=== PATIENT | female | born 1960 | race Caucasian/White ===

== ENCOUNTER 2021-04-11 14:20 | Emergency (ER) | payer MEDICAID, SELFPAY ==
[2021-04-11 15:07] VITALS: BP 110/76; PULSE 66; RESP 20; TEMP 36.8; O2SAT 97; BMI 28.5
[2021-04-11 16:40] VITALS: BP 122/73; PULSE 64; RESP 16; TEMP 37.1; O2SAT 100
--- NOTE | 2021-04-11 16:49 | ED_ITS ---
HPI - Abdominal Pain General: Chief Complaint: Abdominal Pain Stated Complaint: ABD pain Time Seen by Provider: 04/11/21 15:54 History of Present Illness: HPI narrative: The patient is a 60-year-old female who comes to the ER complaining of of gross ascites. She has chronic liver failure and gets it tapped every 5 to 7 days. She was unable to make it to [place] to get it tapped for her last appointment so she came today for evaluation. She complains of abdominal fullness and she also says she thinks she has a urinary tract infection. She was last drained April 04 at [facility] in [place]. No previous visits here in the ED. She says her belly feels swollen and uncomfortable. It is soft to palpation and not tender. Location: Diffuse Severity: moderate Quality: fullness Exacerbating factors: nothing Relieving factors: nothing Associated Symptoms: Reports dysuria; Denies GI cramping and diarrhea Review of Systems General: Reports: 10 or more systems reviewed and unremarkable except in HPI and below Const: Denies: fatigue Eyes: Denies: change in vision, blurry vision or eye redness ENMT: Denies: throat pain, swelling of lips/tongue, ear or mastoid pain or n maite congestion Card: Denies: chest pain, palpitations, irregular heart rhythm, edema, dyspnea on exertion or orthopnea Resp: Denies: dyspnea, productive cough or non-productive cough GI: Denies: abdominal pain, diarrhea or GI cramping : Reports: dysuria Musc: Denies: neck pain, back pain, extremity pain, joint pain, joint redness, limited range of motion or muscle weakness Skin/Breast: Denies: rash, pruritus, erythema, skin pain or skin tenderness Neuro: Denies: headache(s), numbness in extremities, weakness in extremities, sensory changes, difficulty walking, dizziness, confusion or Slurred speech present Psych: Denies: anxiety or depression Endo: Denies: polyuria All/Imm: Denies: urticaria, throat swelling or tongue swelling Physical Exam Const: COMMON NORMALS: no acute distress, average body habitus, patient oriented x3, no limitations, healthy appearing, alert and well nourished GENERAL APPEARANCE: cooperative, comfortable, well kempt and well developed ORIENTATION/CONSCIOUSNESS: Yes awake, Yes oriented to person, Yes oriented to place and Yes oriented to time HENMT: COMMON NORMALS: normocephalic, external ears normal and Normal external nose present HEAD & SCALP: normal to inspection and normocephalic NOSE: Normal external nose present EXTERNAL EAR: Yes external ears normal MOUTH: Normal oral and palatal mucosa present THROAT: posterior oropharynx normal Eye: COMMON NORMALS: Equal, round and reactive pupils present and EOMs intact bilaterally GENERAL EYE: appearance normal, both eyes and all related structures PUPIL: Yes Equal, round and reactive pupils present Neck/C-Spine: COMMON NORMALS: full ROM, no lymphadenopathy, no meningeal signs and no JVD GENERAL: Yes normal visual inspection Lymph: LYMPHATIC: no lymphadenopathy noted Chest: COMMONS NORMALS: normal inspection of the chest and normal palpation of entire chest wall Resp: COMMON NORMALS: normal respiratory effort, No retractions, No use of accessory muscles, clear to auscultation bilaterally and percussion normal EFFORT & INSPECTION: Yes able to speak in complete sentences AUSCULTATION: clear to auscultation bilaterally PERCUSSION: percussion normal Cardio: COMMON NORMALS: no JVD, regular rate, regular rhythm, S1 normal heart sound present, S2 normal heart sound present and Peripheral pulses 2+ throughout RATE: regular rate RHYTHM: regular rhythm HEART SOUNDS: S1 normal heart sound present and S2 normal heart sound present PERIPHERAL PULSES: Peripheral pulses 2+ throughout GI: COMMON NORMALS: Soft to palpation, non-tender and no masses INSPECTION: Yes normal to inspection PALPATION: Yes Soft to palpation OTHER: Gross ascites. Belly still soft and not tender. Umbilical hernia present as well. Nontender. : COMMON NORMALS: Yes no CVA tenderness BLADDER/KIDNEY EXAM: Yes no CVA tenderness Back/Pelvis: COMMON NORMALS: no CVA tenderness, thoracic and lumbar spine normal to inspection, no thoracic nor lumbar tenderness and thoraco-lumbar ROM normal Extremity: COMMON NORMALS: normal to inspection, full ROM, capillary refill normal, no joint enlargement and no pedal edema GENERAL: Yes normal exam except as noted Neuro: COMMON NORMALS: patient oriented x3, CN's II-XII intact bilaterally, moves all extremities, no focal motor deficits, no sensory deficits noted and gait normal SENSORIUM/ORIENTATION: Yes alert, Yes oriented to person, Yes oriented to place and Yes oriented to time MENINGEAL SIGNS: Yes no meningeal signs Psych: COMMON NORMALS: mental status grossly normal, Normal thought process present, cooperative, normal affect and speech normal APPEARANCE: Yes well kempt ATTITUDE: Yes calm SPEECH: Yes normal speech THOUGHT PROCESS: Normal thought process present Skin: COMMON NORMALS: no rashes or lesions noted GENERAL SKIN EXAM: no rashes or lesions noted Course Vital Signs: Vital signs: Vital Signs Temperature 98.7 F 04/11/21 16:40 Pulse Rate 69 04/11/21 17:50 Respiratory Rate 16 04/11/21 17:50 Blood Pressure 104/74 04/11/21 17:50 Pulse Oximetry 99 04/11/21 17:50 MDM - Abdominal Pain MDM Narrative: Medical decision making narrative: The patient is a 60-year-old female new to the area [facility] who comes to the ER requesting her belly be tapped as she missed her appointment and she is new to the area. She missed her appointment she gets it drained every 5 to 7 days. She last had it drained on April 04. She complains of belly distention. Her belly is distended and has a reducible umbilical hernia but is still soft. Called interventional radiology to see if they could perform a paracentesis and they said no schedule it tomorrow. Appointment was set up for tomorrow to check in at 10 AM at the front of the hospital for a paracentesis. She will return with worsening symptoms at any time. She also has slight UTI and will be given Macrobid Lab Data: Labs: Lab Results 04/11/21 04/11/21 04/11/21 Range/Units 14:40 17:00 17:00 WBC 5.0 (4.0-10.0) 10^3/ uL RBC 3.93 L (4.1-5.3) 10^6/u L Hgb 10.7 L (11.5-15.3) g/dL Hct 35.2 L (37.0-47.0) % MCV 89.6 (81-99) fL MCH 27.2 L (28.0-34.0) pg MCHC 30.4 (30.0-36.0) g/dL RDW 15.5 H (12.1-15.1) % Plt Count 109 L (130-400) 10^3/c mm MPV 11.1 H (7.4-10.4) fL Neut % (Auto) 76.6 % Lymph % (Auto) 9.3 % Jerome % (Auto) 10.7 % Eos % (Auto) 2.4 % Baso % (Auto) 0.8 % Neut # (Auto) 3.79 (1.8-7.7) 10^3/u L Lymph # (Auto) 0.5 L (0.8-4.8) 10^3/u L Jerome # (Auto) 0.5 (0.2-0.9) 10^3/u L Eos # (Auto) 0.1 (0.0-0.8) 10^3/u L Baso # (Auto) 0.0 (0.0-0.1) 10^3/u L Nucleated RBC % (a uto) 0 % Nucleated RBCs # 0.0 /100WBC PT 15.20 H (12.1-14.9) SECO NDS INR 1.17 (0.8-1.2) Sodium (136-145) mmol/L Potassium (3.5-5.1) mmol/L Chloride (98-107) mmol/L Carbon Dioxide (22-29) mmol/L Anion Gap (5-19) BUN (8-23) mg/dL Creatinine (0.5-0.9) mg/dL GFR Calculation (90-130) mL/min Glucose (65-115) mg/dL Calculated Osmolal ity (285-295) mOsm/k g Calcium (8.5-10.5) mg/dL Total Bilirubin (0.15-1.2) mg/dL AST (0-32) U/L ALT (0-33) U/L Alkaline Phosphata se (35-105) IU/L Total Protein (6.6-8.7) g/dL Albumin (3.5-5.2) g/dL Globulin (1.3-4.6) g/dL Lipase (13-60) U/L Urine Color [place] (Yellow) Urine Appearance Hazy A (CLEAR) Urine pH 6 (5-7) Ur Specific Gravit y 1.015 (1.005-1.030) Urine Protein Neg (Negative) Urine Glucose (UA) Norm (Normal) Urine Ketones 1+ H (Negative) Urine Blood Neg (Negative) Urine Nitrate Positive H (Negative) Urine Bilirubin 1+ H (Negative) Urine Urobilinogen 1 H (Negative) mg/dL Ur Leukocyte Jennifer ase Trace H (Negative) Urine RBC 0-4 H (0-2) /hpf Urine WBC 5-10 H (0-5) /hpf Ur Squamous Epith Cells 0-4 H (0-5) /hpf Amorphous Sediment Not Reportable Urine Bacteria 3+ H (NONE) /hpf 04/11/21 Range/Units 17:00 WBC (4.0-10.0) 10^3/ uL RBC (4.1-5.3) 10^6/u L Hgb (11.5-15.3) g/dL Hct (37.0-47.0) % MCV (81-99) fL MCH (28.0-34.0) pg MCHC (30.0-36.0) g/dL RDW (12.1-15.1) % Plt Count (130-400) 10^3/c mm MPV (7.4-10.4) fL Neut % (Auto) % Lymph % (Auto) % Jerome % (Auto) % Eos % (Auto) % Baso % (Auto) % Neut # (Auto) (1.8-7.7) 10^3/u L Lymph # (Auto) (0.8-4.8) 10^3/u L Jerome # (Auto) (0.2-0.9) 10^3/u L Eos # (Auto) (0.0-0.8) 10^3/u L Baso # (Auto) (0.0-0.1) 10^3/u L Nucleated RBC % (a uto) % Nucleated RBCs # /100WBC PT (12.1-14.9) SECO NDS INR (0.8-1.2) Sodium 138 (136-145) mmol/L Potassium 3.5 (3.5-5.1) mmol/L Chloride 107 (98-107) mmol/L Carbon Dioxide 22 (22-29) mmol/L Anion Gap 12.5 (5-19) BUN 14 (8-23) mg/dL Creatinine 0.7 (0.5-0.9) mg/dL GFR Calculation 85.1 L (90-130) mL/min Glucose 71 (65-115) mg/dL Calculated Osmolal ity 285 (285-295) mOsm/k g Calcium 8.3 L (8.5-10.5) mg/dL Total Bilirubin 0.6 (0.15-1.2) mg/dL AST 34 H (0-32) U/L ALT 23 (0-33) U/L Alkaline Phosphata se 105 (35-105) IU/L Total Protein 5.5 L (6.6-8.7) g/dL Albumin 3.1 L (3.5-5.2) g/dL Globulin 2.4 (1.3-4.6) g/dL Lipase 35 (13-60) U/L Urine Color (Yellow) Urine Appearance (CLEAR) Urine pH (5-7) Ur Specific Gravit y (1.005-1.030) Urine Protein (Negative) Urine Glucose (UA) (Normal) Urine Ketones (Negative) Urine Blood (Negative) Urine Nitrate (Negative) Urine Bilirubin (Negative) Urine Urobilinogen (Negative) mg/dL Ur Leukocyte Jennifer ase (Negative) Urine RBC (0-2) /hpf Urine WBC (0-5) /hpf Ur Squamous Epith Cells (0-5) /hpf Amorphous Sediment Urine Bacteria (NONE) /hpf Discharge Plan Discharge Patient Disposition: Home Clinical Impression: Ascites, UTI (urinary tract infection) Condition: Stable Prescriptions: New Macrobid 100 mg capsule 100 mg PO BID 5 Days Qty: 10 RF: 0 No Action furosemide 40 mg Tablet 40 mg PO DAILY RF: 0 levothyroxine 175 mcg Tablet 175 mcg PO DAILY RF: 0 trazodone 50 mg Tablet 100 mg PO BEDTIME RF: 0 pantoprazole 40 mg Tablet,Delayed Release (Dr/Ec) 40 mg PO DAILY RF: 0 ibuprofen 200 mg Tablet 200 - 400 mg PO Q6H PRN (Reason: Pain) RF: 0 prazosin 2 mg Capsule 2 mg PO BEDTIME RF: 0 spironolactone 50 mg Tablet 50 mg PO DAILY RF: 0 Xifaxan See Rx Instructions .ROUTE .COMPLEX RF: 0 Discharge Orders: Discharge ED (Routine); Ordered 04/11/21 Ordered By: Lopez Agrawal Discharge Diet: Advance as tolerated Discharge Activity: Resume usual activity Patient Instructions: Ascites (ED), Dysuria (ED), Opioid Safety Activity Restrictions/Additional Instructions: Please follow-up at the front entrance of the hospital tomorrow morning at 10 AM and you are scheduled for a paracentesis at that time. Return to the ER at anytime with worsening symptoms while you are at home for reevaluation. You also have a urinary tract infection and will be prescribed Macrobid for this. Take as directed and return to the ER with worsening symptoms otherwise follow- up with your primary care provider. I have placed a case management consult to help you get a local primary doctor. Coding Level of Care Code ED Conventions Assistant for Holly Fwd Exam Comprehensive
[2021-04-11 17:02] LABS: Add Urine Microscopic? YES; Bilirubin Urine 1+ (Negative); Blood Urine Neg (Negative); Glucose Urine UA Norm (Normal); Ketones Urine 1+ (Negative); Leukocyte Esterase Urine Trace (Negative); Nitrate Urine Positive (Negative); Protein Urine Neg (Negative); Specific Gravity, Urine 1.015 (1.005-1.030); Urine Appearance Hazy (CLEAR); Urine Color Orange (Yellow); Urobilinogen Urine 1 mg/dL (Negative); pH Urine 6 (5-7)
[2021-04-11 17:07] LABS: Bacteria Urine 3+ /hpf; RBC Urine 0-4 /hpf (0-2); Squamous Epithelial Cell Urine 0-4 /hpf (0-5)
[2021-04-11 17:08] LABS: Add Urine Culture? Yes
[2021-04-11 17:10] LABS: Basophils % 0.8 %; Eosinophils # 0.1 10^3/uL (0.0-0.8); Eosinophils % 2.4 %; Hematocrit 35.2 % (37.0-47.0); Hemoglobin 10.7 g/dL (11.5-15.3); Lymphocytes # 0.5 10^3/uL (0.8-4.8); Lymphocytes % 9.3 %; Mean Corpuscular HGB Conc 30.4 g/dL (30.0-36.0); Mean Corpuscular Hemoglobin 27.2 pg (28.0-34.0); Mean Corpuscular Volume 89.6 fL (81-99); Mean Platelet Volume 11.1 fL (7.4-10.4); Monocytes # 0.5 10^3/uL (0.2-0.9); Monocytes % 10.7 %; Neutrophils # 3.79 10^3/uL (1.8-7.7); Neutrophils % 76.6 %; Nucleated Red Blood Cells % 0 %; Platelet Count 109 10^3/cmm (130-400); Red Blood Count 3.93 10^6/uL (4.1-5.3); Red Cell Distribution Width 15.5 % (12.1-15.1)
[2021-04-11 17:22] LABS: INR 1.17 (0.8-1.2)
[2021-04-11 17:26] LABS: Alanine Aminotransferase 23 U/L (0-33); Albumin Level 3.1 g/dL (3.5-5.2); Alkaline Phosphatase 105 IU/L (35-105); Anion Gap 12.5 (5-19); Aspartate Amino Transferase 34 U/L (0-32); Blood Urea Nitrogen 14 mg/dL (8-23); Calcium 8.3 mg/dL (8.5-10.5); Carbon Dioxide 22 mmol/L (22-29); Chloride 107 mmol/L (98-107); Globulin 2.4 g/dL (1.3-4.6); Glomerular Filtration Rate 85.1 mL/min (90-130); Glucose 71 mg/dL (65-115); Lipase 35 U/L (13-60); Osmolality Calculated 285 mOsm/kg (285-295); Potassium 3.5 mmol/L (3.5-5.1); Sodium 138 mmol/L (136-145); Total Bilirubin 0.6 mg/dL (0.15-1.2); Total Protein 5.5 g/dL (6.6-8.7)
[2021-04-11] MEDS: nitrofurantoin SR (BID) 100 mg Capsule PO (17:49)
[2021-04-11 17:50] VITALS: BP 104/74; PULSE 69; RESP 16; O2SAT 99
--- NOTE | 2021-04-12 11:40 | PC.NURSE ---
prescription called into [facility] pharmacy in [place].
--- NOTE | 2021-04-15 12:33 | DCPLANNER ---
regional safety manager had message to get patient established with a primary care physician and a GI doctor. regional safety manager called the office of Dr. Taylor, spoke with Marilia, gave clinic patients information. A follow up appointment was scheduled for Thursday, April with [employer], Elizabet Lew. Clinic will call patient with appointment information.
--- NOTE | 2021-05-02 08:54 | DCPLANNER ---
Patient did attend follow up appointment scheduled with Dr. Taylor.
== END 2021-04-11 18:00 | disposition home or self-care (01) ==
PROVIDERS: Emergency Provider Family Medicine
DX: N39.0 Urinary tract infection, site not specified (principal); R18.8 Other ascites
CPT/HCPCS: 36415; 80053; 81001; 83690; 85025; 85610; 87077; 87086; 87186; 99283

== ENCOUNTER → 2021-04-12 09:40 | Day surgery (SDC) | payer MEDICAID, SELFPAY ==
[2021-04-12 10:45] VITALS: BP 124/86; PULSE 76; RESP 18; TEMP 36.1; O2SAT 97; BMI 28.5
--- NOTE | 2021-04-12 11:00 | US_ITS ---
WS: [id number] ULTRASOUND-GUIDED THERAPEUTIC PARACENTESIS Procedure, risks, and complications have been explained to the patient. Consent is obtained. Utilizing aseptic technique and 1% buffered lidocaine, a small dermatome was made through which a 5 F rench Yueh catheter was inserted. Approximately 8000 ml of clear peritoneal fluid was obtained witho ut difficulty. No complications encountered. US/US paracentesis abd w [id number] IMPRESSION: Uncomplicated paracentesis yielding 8000 ml of peritoneal fluid.
--- NOTE | 2021-04-12 12:46 | PC.NURSE ---
[employer]ICA[employer]SP[employer] CALLED AND RIDE SET UP TO RETURN TO THE [facility]. TRIP # [id number], THREE HOUR WINDOW BEGINNING AT 1240. PT IN SPECIALS ROOM IN [place], WATCHING TV AND MEAL TRAY ORDERED FROM KITCHEN. DENIES NEEDS AT THIS TIME.
== END ==
PROVIDERS: Visit Provider Family Medicine
DX: R18.8 Other ascites (principal)
CPT/HCPCS: 49083

== ENCOUNTER 2021-04-19 04:02 | Emergency (ER) | payer MEDICAID, SELFPAY ==
[2021-04-19 04:04] VITALS: BP 111/61; PULSE 69; RESP 18; TEMP 36.8; O2SAT 98; BMI 24.9
--- NOTE | 2021-04-19 04:15 | ED_ITS ---
HPI - Abdominal Pain General: Chief Complaint: Abdominal Pain Stated Complaint: ABD FLUID BUILD UP Time Seen by Provider: 04/19/21 04:05 Source: patient and EMS Mode of arrival: EMS Limitations: no limitations History of Present Illness: HPI narrative: 60-year-old female who has a history of liver failure and cirrhosis. She gets ascites and gets paracenteses. She states she had a paracentesis 1 week ago does not see Dr. Taylor from Thursday. States she has had increased swelling and pain. States pain is a 4 out of 10. She denies any vomiting or diarrhea. Denies any shortness of breath. Denies any worsening improving factors. Associated Symptoms: Denies chills, dysuria and fever(s) Review of Systems Const: Denies: fever(s), chills, body aches or change in appetite Eyes: Denies: blurry vision or eye discomfort ENMT: Denies: throat pain or dental pain Card: Denies: chest pain Resp: Denies: dyspnea GI: Reports: abdominal pain : Denies: dysuria Musc: Denies: neck pain or back pain Skin/Breast: Denies: rash Neuro: Denies: headache(s) Psych: Denies: depression Lazarus/Lymph: Denies: easy bruising All/Imm: Denies: urticaria Physical Exam Const: COMMON NORMALS: no acute distress, patient oriented x3 and healthy appearing HENMT: COMMON NORMALS: normocephalic and atraumatic HEAD & SCALP: normocephalic and atraumatic Eye: COMMON NORMALS: Equal, round and reactive pupils present and EOMs intact bilaterally PUPIL: Yes Equal, round and reactive pupils present Neck/C-Spine: COMMON NORMALS: full ROM and supple Chest: COMMONS NORMALS: normal inspection of the chest and normal palpation of entire chest wall Resp: COMMON NORMALS: normal respiratory effort, No retractions, No use of accessory muscles and clear to auscultation bilaterally AUSCULTATION: clear to auscultation bilaterally Cardio: COMMON NORMALS: regular rate, regular rhythm and No murmurs present (Cardio) RATE: regular rate RHYTHM: regular rhythm GI: COMMON NORMALS: Soft to palpation, non-tender and no masses PALPATION: Yes Soft to palpation OTHER: Abdomen is soft and nontender. She does have a quite distended abdomen from ascites. Extremity: COMMON NORMALS: normal to inspection and full ROM Neuro: COMMON NORMALS: patient oriented x3, moves all extremities and no focal motor deficits Psych: COMMON NORMALS: mental status grossly normal, Normal thought process present and cooperative THOUGHT PROCESS: Normal thought process present Skin: COMMON NORMALS: no rashes or lesions noted and no wounds GENERAL SKIN EXAM: no rashes or lesions noted Course Vital Signs: Vital signs: Vital Signs Temperature 98.2 F 04/19/21 04:04 Pulse Rate 69 04/19/21 04:04 Respiratory Rate 18 04/19/21 04:23 Blood Pressure 111/61 04/19/21 04:04 Pulse Oximetry 98 04/19/21 04:04 MDM - Abdominal Pain MDM Narrative: Medical decision making narrative: Patient presents here with ascites from cirrhosis. She has no signs of spontaneous bacterial peritonitis and is not having any abdominal tenderness here on exam. She does have ascites and will set her up to have a drained outpatient. She is stable for discharge and return if worsening. Lab Data: Labs: Lab Results 04/19/21 04/19/21 Range/Units 04:30 04:30 WBC 3.8 L (4.0-10.0) 10^3/ uL RBC 3.47 L (4.1-5.3) 10^6/u L Hgb 9.3 L (11.5-15.3) g/dL Hct 29.9 L (37.0-47.0) % MCV 86.2 (81-99) fL MCH 26.8 L (28.0-34.0) pg MCHC 31.1 (30.0-36.0) g/dL RDW 16.0 H (12.1-15.1) % Plt Count 106 L (130-400) 10^3/c mm MPV 10.3 (7.4-10.4) fL Neut % (Auto) 69.7 % Lymph % (Auto) 10.7 % Howell % (Auto) 14.4 % Eos % (Auto) 3.9 % Baso % (Auto) 1.0 % Neut # (Auto) 2.67 (1.8-7.7) 10^3/u L Lymph # (Auto) 0.4 L (0.8-4.8) 10^3/u L Howell # (Auto) 0.6 (0.2-0.9) 10^3/u L Eos # (Auto) 0.2 (0.0-0.8) 10^3/u L Baso # (Auto) 0.0 (0.0-0.1) 10^3/u L Nucleated RBC % (a uto) 0 % Nucleated RBCs # 0.0 /100WBC Sodium 136 (136-145) mmol/L Potassium 3.9 (3.5-5.1) mmol/L Chloride 107 (98-107) mmol/L Carbon Dioxide 22 (22-29) mmol/L Anion Gap 10.9 (5-19) BUN 14 (8-23) mg/dL Creatinine 0.7 (0.5-0.9) mg/dL GFR Calculation 85.1 L (90-130) mL/min Glucose 91 (65-115) mg/dL Calculated Osmolal ity 282 L (285-295) mOsm/k g Calcium 7.9 L (8.5-10.5) mg/dL Total Bilirubin 0.4 (0.15-1.2) mg/dL AST 33 H (0-32) U/L ALT 26 (0-33) U/L Alkaline Phosphata se 159 H (35-105) IU/L Total Protein 5.2 L (6.6-8.7) g/dL Albumin 3.0 L (3.5-5.2) g/dL Globulin 2.2 (1.3-4.6) g/dL Lipase 50 (13-60) U/L Discharge Plan Discharge Patient Disposition: Home Clinical Impression: Abdominal pain Qualifiers: Abdominal location: generalized Qualified Code(s): R10.84 - Generalized abdominal pain Ascites Qualifiers: Ascites type: other type Qualified Code(s): R18.8 - Other ascites Condition: Stable Prescriptions: New tramadol 50 mg tablet 50 mg PO Q6H PRN (Reason: pain) Qty: 14 RF: 0 No Action furosemide 40 mg Tablet 40 mg PO DAILY RF: 0 levothyroxine 175 mcg Tablet 175 mcg PO DAILY RF: 0 trazodone 50 mg Tablet 100 mg PO BEDTIME RF: 0 pantoprazole 40 mg Tablet,Delayed Release (Dr/Ec) 40 mg PO DAILY RF: 0 ibuprofen 200 mg Tablet 200 - 400 mg PO Q6H PRN (Reason: Pain) RF: 0 prazosin 2 mg Capsule 2 mg PO BEDTIME RF: 0 spironolactone 50 mg Tablet 50 mg PO DAILY RF: 0 Discharge Orders: Discharge ED (Routine); Ordered 04/19/21 Ordered By: Jessica Mcgregor Discharge Diet: Advance as tolerated Discharge Activity: Resume usual activity Patient Instructions: Abdominal Pain (ED), Opioid Safety Coding Level of Care Code ED Director Of Trauma for Cortneyg Fwd Exam Comprehensive
[2021-04-19 04:23] VITALS: RESP 18
[2021-04-19] MEDS: ondansetron 2 mg/ML SDV 2 mL 4 MG IVP (04:23)
[2021-04-19] MEDS: morphine 4 mg/mL SDV 1 mL IVP (04:23)
[2021-04-19 04:43] LABS: Eosinophils # 0.2 10^3/uL (0.0-0.8); Eosinophils % 3.9 %; Hematocrit 29.9 % (37.0-47.0); Hemoglobin 9.3 g/dL (11.5-15.3); Lymphocytes # 0.4 10^3/uL (0.8-4.8); Lymphocytes % 10.7 %; Mean Corpuscular HGB Conc 31.1 g/dL (30.0-36.0); Mean Corpuscular Hemoglobin 26.8 pg (28.0-34.0); Mean Corpuscular Volume 86.2 fL (81-99); Mean Platelet Volume 10.3 fL (7.4-10.4); Monocytes # 0.6 10^3/uL (0.2-0.9); Monocytes % 14.4 %; Neutrophils # 2.67 10^3/uL (1.8-7.7); Neutrophils % 69.7 %; Nucleated Red Blood Cells % 0 %; Platelet Count 106 10^3/cmm (130-400); Red Blood Count 3.47 10^6/uL (4.1-5.3); White Blood Count 3.8 10^3/uL (4.0-10.0)
[2021-04-19 05:07] LABS: Alanine Aminotransferase 26 U/L (0-33); Alkaline Phosphatase 159 IU/L (35-105); Anion Gap 10.9 (5-19); Aspartate Amino Transferase 33 U/L (0-32); Blood Urea Nitrogen 14 mg/dL (8-23); Calcium 7.9 mg/dL (8.5-10.5); Carbon Dioxide 22 mmol/L (22-29); Chloride 107 mmol/L (98-107); Globulin 2.2 g/dL (1.3-4.6); Glomerular Filtration Rate 85.1 mL/min (90-130); Glucose 91 mg/dL (65-115); Lipase 50 U/L (13-60); Osmolality Calculated 282 mOsm/kg (285-295); Potassium 3.9 mmol/L (3.5-5.1); Sodium 136 mmol/L (136-145); Total Bilirubin 0.4 mg/dL (0.15-1.2); Total Protein 5.2 g/dL (6.6-8.7)
[2021-04-19 05:27] VITALS: BP 107/67; PULSE 65; RESP 16; O2SAT 97
--- NOTE | 2021-04-19 10:48 | DCPLANNER ---
anatomic pathology manager had message to schedule an outpatient paracentesis. anatomic pathology manager faxed order to centralized scheduling.
--- NOTE | 2021-04-26 10:16 | DCPLANNER ---
Patient has a paracentesis scheduled for Thursday, April 29, 2021 at 8:45.
--- NOTE | 2021-05-02 08:25 | DCPLANNER ---
Patient had an outpatient procedure scheduled for 04.29.21 - patient did attend appointment.
== END 2021-04-19 05:28 | disposition home or self-care (01) ==
PROVIDERS: Emergency Provider Emergency Medicine
DX: R10.84 Generalized abdominal pain (principal); R18.8 Other ascites
CPT/HCPCS: 80053; 83690; 85025; 96374; 96375; 99283; J2270; J2405

== ENCOUNTER 2021-04-22 09:44 | Emergency (ER) | payer MEDICAID, SELFPAY ==
[2021-04-22 09:46] VITALS: BP 110/76; PULSE 76; RESP 20; TEMP 36.7; O2SAT 100; BMI 29.5
--- NOTE | 2021-04-22 10:01 | US_ITS ---
WS: [id number] ULTRASOUND-GUIDED THERAPEUTIC PARACENTESIS Procedure, risks, and complications have been explained to the patient. Consent is obtained. Utilizing aseptic technique and 1% buffered lidocaine, a small dermatome was made through which a 5 F rench Yueh catheter was inserted. Approximately 8000 ml of clear peritoneal fluid was obtained witho ut difficulty. No complications encountered. US/US paracentesis abd w [id number] IMPRESSION: Uncomplicated paracentesis yielding 8000 ml of peritoneal fluid.
[2021-04-22 10:13] VITALS: BP 100/60; PULSE 74; RESP 18; TEMP 37; O2SAT 98
--- NOTE | 2021-04-22 10:24 | W.ED.ABDPA2 ---
HPI - Abdominal Pain General: Chief Complaint: Abdominal Pain Stated Complaint: Abdominal Ascites Time Seen by Provider: 04/22/21 10:01 History of Present Illness: HPI narrative: 60-year-old female presents emergency room with complaints of abdominal pain and bloating. She has a known history of hepatitis C with resultant liver failure she had gone through treatment with [facility] about 4 to 5 years ago. About 10 days ago she had 8 L taken off. She is having difficult time breathing the position of comfort is lying on her right side. She denies any vomiting or diarrhea. Has been very nauseous. She has an appointment today to set up to see internal medicine but has not seen gastroenterology. MD elicited complaint: abdominal pain Pertinent past history: other (Hepatitis C with ascites) Onset (ago): month(s) Pain Consistency: constant Location: Diffuse Severity: moderate Quality: cramping Radiation: none Migration to: no migration Exacerbating factors: movement Relieving factors: rest and other (Right lateral recumbent position) Associated Symptoms: Reports anorexia, bloating, GI cramping, nausea and poor appetite; Denies belching, change in bowel habits, change in stool character, chills, coffee ground emesis, constipation, diarrhea, dyspepsia, dysuria, excessive flatus, fever(s), heartburn, hematochezia, hematuria, hematemesis, fecal incontinence, loose stools, melena, syncope and vomiting Review of Systems Const: Denies: fever(s) or chills ENMT: Denies: throat pain, ear or mastoid pain, nasal discharge or nasal congestion Card: Denies: syncope Resp: Denies: dyspnea, productive cough or non-productive cough GI: Reports: nausea, bloating and GI cramping; Denies: vomiting, hematemesis, coffee ground emesis, heartburn, diarrhea, constipation, belching, excessive flatus, fecal incontinence, change in bowel habits, change in stool character, hematochezia or melena : Denies: dysuria or hematuria Skin/Breast: Denies: rash or pruritus PFSH ED PFSH: Social History Smoking and tobacco status: current every day smoker Alcohol intake: former Adopted: No Marital status: Number of children: 2 service: No History of recent travel: No Physical Exam Const: COMMON NORMALS: no acute distress GENERAL APPEARANCE: cooperative and comfortable ORIENTATION/CONSCIOUSNESS: Yes awake, Yes oriented to person, Yes oriented to place and Yes oriented to time HENMT: COMMON NORMALS: normocephalic, atraumatic and hearing grossly normal bilaterally HEAD & SCALP: normocephalic and atraumatic Neck/C-Spine: COMMON NORMALS: no JVD Resp: COMMON NORMALS: normal respiratory effort, No retractions, No use of accessory muscles and clear to auscultation bilaterally AUSCULTATION: clear to auscultation bilaterally Cardio: COMMON NORMALS: no JVD, regular rate, regular rhythm and No murmurs present (Cardio) RATE: regular rate RHYTHM: regular rhythm GI: INSPECTION: Yes Fluid wave present AUSCULTATION: Yes normoactive bowel sounds PALPATION: Yes Tenderness to palpation present (GI), No Guarding due to palpation present (GI) and Yes Hepatomegaly present PERCUSSION: Fluid wave present OTHER: Umbilical hernia easily reducible Extremity: COMMON NORMALS: normal to inspection, capillary refill normal, no clubbing, cyanosis or edema, no calf tenderness and no pedal edema Neuro: SENSORIUM/ORIENTATION: Yes oriented to person, Yes oriented to place and Yes oriented to time Skin: COMMON NORMALS: no rashes or lesions noted GENERAL SKIN EXAM: no rashes or lesions noted Course Vital Signs: Vital signs: Vital Signs Temperature 98.6 F 04/22/21 10:13 Pulse Rate 72 04/22/21 12:28 Respiratory Rate 20 H 04/22/21 12:28 Blood Pressure 87/67 04/22/21 12:28 Pulse Oximetry 100 04/22/21 12:28 MDM - Abdominal Pain MDM Narrative: Medical decision making narrative: A liter was removed patient is feeling better. However follow-up with primary care she is establishing today Dr. Taylor's office discharged from the ER. Did note pancytopenia which is approximately at her baseline she has thrombocytopenia as well which is consistent with her disease. Lab Data: Labs: Lab Results 04/22/21 04/22/21 04/22/21 Range/Units 10:49 11:00 11:00 WBC 1.6 L (4.0-10.0) 10^3/ uL RBC 3.47 L (4.1-5.3) 10^6/u L Hgb 9.5 L (11.5-15.3) g/dL Hct 31.0 L (37.0-47.0) % MCV 89.3 (81-99) fL MCH 27.4 L (28.0-34.0) pg MCHC 30.6 (30.0-36.0) g/dL RDW 16.3 H (12.1-15.1) % Plt Count 88 L (130-400) 10^3/c mm MPV 10.3 (7.4-10.4) fL Neut % (Auto) 67.8 % Lymph % (Auto) 13.0 % [place] % (Auto) 14.3 % Eos % (Auto) 3.7 % Baso % (Auto) 1.2 % Neut # (Auto) 1.09 L (1.8-7.7) 10^3/u L Lymph # (Auto) 0.2 L (0.8-4.8) 10^3/u L [place] # (Auto) 0.2 (0.2-0.9) 10^3/u L Eos # (Auto) 0.1 (0.0-0.8) 10^3/u L Baso # (Auto) 0.0 (0.0-0.1) 10^3/u L Nucleated RBC % (a uto) 0 % Nucleated RBCs # 0.0 /100WBC PT 14.70 (12.1-14.9) SECO NDS INR 1.11 (0.8-1.2) APTT 31.5 (23.9-36.7) SECO NDS Sodium 139 (136-145) mmol/L Potassium 3.9 (3.5-5.1) mmol/L Chloride 107 (98-107) mmol/L Carbon Dioxide 25 (22-29) mmol/L Anion Gap 10.9 (5-19) BUN 15 (8-23) mg/dL Creatinine 0.7 (0.5-0.9) mg/dL GFR Calculation 85.1 L (90-130) mL/min Glucose 84 (65-115) mg/dL Calculated Osmolal ity 288 (285-295) mOsm/k g Calcium 8.0 L (8.5-10.5) mg/dL Total Bilirubin 0.4 (0.15-1.2) mg/dL AST 97 H (0-32) U/L ALT 51 H (0-33) U/L Alkaline Phosphata se 174 H (35-105) IU/L Ammonia (11-51) umol/L Total Protein 5.8 L (6.6-8.7) g/dL Albumin 3.2 L (3.5-5.2) g/dL Globulin 2.6 (1.3-4.6) g/dL Lipase 61 H (13-60) U/L 04/22/21 Range/Units 11:00 WBC (4.0-10.0) 10^3/ uL RBC (4.1-5.3) 10^6/u L Hgb (11.5-15.3) g/dL Hct (37.0-47.0) % MCV (81-99) fL MCH (28.0-34.0) pg MCHC (30.0-36.0) g/dL RDW (12.1-15.1) % Plt Count (130-400) 10^3/c mm MPV (7.4-10.4) fL Neut % (Auto) % Lymph % (Auto) % [place] % (Auto) % Eos % (Auto) % Baso % (Auto) % Neut # (Auto) (1.8-7.7) 10^3/u L Lymph # (Auto) (0.8-4.8) 10^3/u L [place] # (Auto) (0.2-0.9) 10^3/u L Eos # (Auto) (0.0-0.8) 10^3/u L Baso # (Auto) (0.0-0.1) 10^3/u L Nucleated RBC % (a uto) % Nucleated RBCs # /100WBC PT (12.1-14.9) SECO NDS INR (0.8-1.2) APTT (23.9-36.7) SECO NDS Sodium (136-145) mmol/L Potassium (3.5-5.1) mmol/L Chloride (98-107) mmol/L Carbon Dioxide (22-29) mmol/L Anion Gap (5-19) BUN (8-23) mg/dL Creatinine (0.5-0.9) mg/dL GFR Calculation (90-130) mL/min Glucose (65-115) mg/dL Calculated Osmolal ity (285-295) mOsm/k g Calcium (8.5-10.5) mg/dL Total Bilirubin (0.15-1.2) mg/dL AST (0-32) U/L ALT (0-33) U/L Alkaline Phosphata se (35-105) IU/L Ammonia 47 (11-51) umol/L Total Protein (6.6-8.7) g/dL Albumin (3.5-5.2) g/dL Globulin (1.3-4.6) g/dL Lipase (13-60) U/L Discharge Plan Discharge Patient Disposition: Home Clinical Impression: Ascites, Hepatitis C, Pancytopenia Condition: Stable Prescriptions: No Action tramadol 50 mg tablet 50 mg PO Q6H PRN (Reason: pain) Qty: 14 RF: 0 Xifaxan 550 mg Tablet 550 mg PO BID RF: 0 furosemide 40 mg Tablet 40 mg PO DAILY RF: 0 levothyroxine 175 mcg Tablet 175 mcg PO DAILY RF: 0 trazodone 50 mg Tablet 100 mg PO BEDTIME RF: 0 ibuprofen 200 mg Tablet 600 mg PO BID RF: 0 prazosin 2 mg Capsule 2 mg PO BEDTIME RF: 0 spironolactone 50 mg Tablet 50 mg PO DAILY RF: 0 Discharge Orders: Discharge ED (Routine); Ordered 04/22/21 Ordered By: Joey Aleman Discharge Diet: Usual diet Discharge Activity: Increase activity as tolerated Patient Instructions: Opioid Safety Activity Restrictions/Additional Instructions: Keep appointment scheduled today with Dr. Taylor's office. Coding Level of Care Code ED Repertoire Manager for Holly Fwd Exam Comprehensive
[2021-04-22 11:14] LABS: Basophils % 1.2 %; Eosinophils # 0.1 10^3/uL (0.0-0.8); Eosinophils % 3.7 %; Hemoglobin 9.5 g/dL (11.5-15.3); Lymphocytes # 0.2 10^3/uL (0.8-4.8); Mean Corpuscular HGB Conc 30.6 g/dL (30.0-36.0); Mean Corpuscular Hemoglobin 27.4 pg (28.0-34.0); Mean Corpuscular Volume 89.3 fL (81-99); Mean Platelet Volume 10.3 fL (7.4-10.4); Monocytes # 0.2 10^3/uL (0.2-0.9); Monocytes % 14.3 %; Neutrophils # 1.09 10^3/uL (1.8-7.7); Neutrophils % 67.8 %; Nucleated Red Blood Cells % 0 %; Platelet Count 88 10^3/cmm (130-400); Red Blood Count 3.47 10^6/uL (4.1-5.3); Red Cell Distribution Width 16.3 % (12.1-15.1); White Blood Count 1.6 10^3/uL (4.0-10.0)
[2021-04-22 11:28] LABS: Alanine Aminotransferase 51 U/L (0-33); Albumin Level 3.2 g/dL (3.5-5.2); Alkaline Phosphatase 174 IU/L (35-105); Blood Urea Nitrogen 15 mg/dL (8-23); Carbon Dioxide 25 mmol/L (22-29); Chloride 107 mmol/L (98-107); Globulin 2.6 g/dL (1.3-4.6); Glomerular Filtration Rate 85.1 mL/min (90-130); Glucose 84 mg/dL (65-115); Lipase 61 U/L (13-60); Osmolality Calculated 288 mOsm/kg (285-295); Sodium 139 mmol/L (136-145); Total Bilirubin 0.4 mg/dL (0.15-1.2); Total Protein 5.8 g/dL (6.6-8.7)
[2021-04-22 11:38] LABS: INR 1.11 (0.8-1.2)
[2021-04-22 11:39] LABS: Anion Gap 10.9 (5-19); Aspartate Amino Transferase 97 U/L (0-32); Potassium 3.9 mmol/L (3.5-5.1)
[2021-04-22 11:39] LABS: Partial Thromboplastin Time 31.5 SECONDS (23.9-36.7)
[2021-04-22 11:40] LABS: Ammonia 47 umol/L (11-51)
[2021-04-22] MEDS: fentaNYL 50 mcg/mL INJ 2mL 12.5 MCG IVP (12:27)
[2021-04-22 12:28] VITALS: BP 87/67; PULSE 72; RESP 20; O2SAT 100
--- NOTE | 2021-04-22 14:05 | PC.NURSE ---
patient is being loud in hallway saying she is leaving and physician Dr Aleman ask that I discharge the patient. went to patient room she signs discharge and then leaves she does not allow time for vitals to be obtained and didnt take her instructions with her
== END 2021-04-22 14:05 | disposition home or self-care (01) ==
PROVIDERS: Emergency Provider Family Medicine
DX: R18.8 Other ascites (principal); B19.20 Unspecified viral hepatitis C without hepatic coma; D61.818 Other pancytopenia; F17.210 Nicotine dependence, cigarettes, uncomplicated
CPT/HCPCS: 49083; 80053; 82140; 83690; 85025; 85610; 85730; 96374; 99283; J3010

== ENCOUNTER → 2021-04-29 10:03 | Day surgery (SDC) | payer MEDICAID, SELFPAY ==
--- NOTE | 2021-04-29 10:17 | US_ITS ---
WS: [id number] INDICATION: Paracentesis marking TECHNIQUE: Ultrasound utilized for paracentesis FINDINGS: 4 quadrant moderate to large amount of abdominal ascites US/US abdomen lmt fluid [id number] IMPRESSION: Ultrasound utilized for paracentesis marking
[2021-04-29 10:24] VITALS: BP 132/85; PULSE 74; RESP 16; TEMP 36.9; O2SAT 97; BMI 25.0
[2021-04-29 12:12] VITALS: BP 131/80; PULSE 68; RESP 16; O2SAT 100
== END ==
PROVIDERS: PCP Internal Medicine; Visit Provider Internal Medicine
DX: R18.8 Other ascites (principal)
CPT/HCPCS: 49082; 76705

== ENCOUNTER → 2021-05-06 10:37 | Day surgery (SDC) | payer MEDICAID, SELFPAY ==
[2021-05-06 11:30] VITALS: BP 116/72; PULSE 88; RESP 18; TEMP 36.4; O2SAT 98
[2021-05-06 11:38] VITALS: BMI 28.0
[2021-05-06 13:17] VITALS: BP 114/66; PULSE 71; RESP 16; TEMP 36.2; O2SAT 99
== END ==
PROVIDERS: PCP Internal Medicine; Visit Provider Internal Medicine
DX: R18.8 Other ascites (principal)
CPT/HCPCS: 49082

== ENCOUNTER 2021-05-10 13:10 | Emergency (ER) | payer MEDICAID, SELFPAY ==
[2021-05-10 13:48] VITALS: BP 113/76; PULSE 76; RESP 18; TEMP 37.1; O2SAT 97; BMI 25.0
[2021-05-10 15:47] VITALS: BP 118/81; PULSE 75; RESP 18; O2SAT 100
--- NOTE | 2021-05-10 16:13 | XRR_ITS ---
PROCEDURE INFORMATION: Exam: XR Chest Exam date and time: 05/10/2021 4:13 PM Age: 60 years old Clinical indication: Cough and dyspnea; Additional info: Dyspnea/cough TECHNIQUE: Imaging protocol: XR of the chest. Views: 1 view. COMPARISON: No relevant prior studies available. FINDINGS: Lungs: Unremarkable. No consolidation. Pleural spaces: Unremarkable. No pleural effusion. No pneumothorax. Heart/Mediastinum: Unremarkable. No cardiomegaly. Bones/joints: Unremarkable. XR/XR chest 1V portable [id number] IMPRESSION: No acute findings.
--- NOTE | 2021-05-10 16:14 | ED_ITS ---
HPI - General Adult General: Chief complaint: General Medical Stated complaint: FLUID RETENTION/ LIVER FAILURE Time Seen by Provider: 05/10/21 15:42 History of Present Illness: HPI narrative: 60-year-old female presents emergency room with complaints of abdominal discomfort. She also is having a lot of swelling in her legs. She has known liver cirrhosis and has had multiple therapeutic paracentesis. She is scheduled to have a drain placed in the peritoneum to allow for easy drainage of the ascites this is to be done next week. Today she is complaining of increased fluid retention and discomfort. Is particularly in her lower extremities she is wearing a large abdominal binder for an umbilical hernia. Onset (ago): hour(s) Location: abdomen and lower extremity Radiation: extremity Severity: moderate Quality: aching Associated symptoms: Reports nausea; Deny chest pain, dyspnea, malaise, rash or vomiting Review of Systems Const: Denies: fever(s), chills, body aches, change in appetite, fatigue or malaise ENMT: Denies: throat pain, ear or mastoid pain, nasal discharge or nasal congestion Card: Denies: chest pain, edema, dyspnea on exertion or orthopnea Resp: Denies: dyspnea, productive cough or non-productive cough GI: Reports: abdominal pain, nausea, bloating and GI cramping; Denies: vomiting, hematemesis, coffee ground emesis, diarrhea, constipation, hematochezia or melena : Denies: flank pain, difficulty voiding, dysuria, urinary frequency or urinary urgency Skin/Breast: Denies: rash or pruritus PFSH ED PFSH: Medical History (Updated 05/10/21 @ 18:00 by Joey Aleman DO) Ascites Cirrhosis Esophageal varices Hepatitis C Surgical History (Updated 05/07/21 @ 15:38 by Renny Sloan MD) H/O esophagogastroduodenoscopy History of appendectomy open-1985 History of arthroscopic knee surgery bilateral 2002 History of cholecystectomy lap-2010 History of colonoscopy History of foot surgery rt foot second toe History of shoulder surgery left History of thyroidectomy, total History of total hysterectomy 2010 History of total knee replacement 2002 Social History Alcohol intake: former Adopted: No Marital status: Number of children: 2 service: No History of recent travel: No Physical Exam Const: COMMON NORMALS: no acute distress GENERAL APPEARANCE: cooperative and comfortable ORIENTATION/CONSCIOUSNESS: Yes awake, Yes oriented to person, Yes oriented to place and Yes oriented to time HENMT: COMMON NORMALS: normocephalic, atraumatic and hearing grossly normal bilaterally HEAD & SCALP: normocephalic and atraumatic Neck/C-Spine: COMMON NORMALS: no JVD Resp: COMMON NORMALS: normal respiratory effort, No retractions, No use of ac cessory muscles and clear to auscultation bilaterally AUSCULTATION: clear to auscultation bilaterally Cardio: COMMON NORMALS: no JVD, regular rate, regular rhythm and No murmurs present (Cardio) RATE: regular rate RHYTHM: regular rhythm GI: PALPATION: Yes Tenderness to palpation present (GI), No Guarding due to palpation present (GI) and Yes Ascites present Extremity: COMMON NORMALS: normal to inspection, capillary refill normal, no clubbing, cyanosis or edema, no calf tenderness and no pedal edema Neuro: SENSORIUM/ORIENTATION: Yes oriented to person, Yes oriented to place and Yes oriented to time Skin: COMMON NORMALS: no rashes or lesions noted GENERAL SKIN EXAM: no ra shes or lesions noted Course Vital Signs: Vital signs: Vital Signs Temperature 98.8 F 05/10/21 18:32 Pulse Rate 71 05/10/21 18:32 Respiratory Rate 18 05/10/21 18:32 Blood Pressure 130/85 05/10/21 18:32 Pulse Oximetry 99 05/10/21 18:32 MDM - General Adult MDM Narrative: Medical decision making narrative: Patient has significant cirrhosis with ascites however it is only recently diagnosed she probably needs a diagnostic paracentesis we do not have anyone available at this time she is not significantly compromised at this time reviewed labs and imaging reviewed the imaging from recently where to go ahead and discharge her home and have high risk case manager make arrangements for her to have a diagnostic paracentesis next week. Lab Data: Labs: Lab Results 05/10/21 05/10/21 05/10/21 Range/Units 16:48 16:48 16:48 WBC 3.0 L (4.0-10.0) 10^3/ uL RBC 3.77 L (4.1-5.3) 10^6/u L Hgb 10.1 L (11.5-15.3) g/dL Hct 33.3 L (37.0-47.0) % MCV 88.3 (81-99) fL MCH 26.8 L (28.0-34.0) pg MCHC 30.3 (30.0-36.0) g/dL RDW 17.5 H (12.1-15.1) % Plt Count 126 L (130-400) 10^3/c mm MPV 9.9 (7.4-10.4) fL Neut % (Auto) 73.5 % Lymph % (Auto) 9.9 % [place] % (Auto) 10.6 % Eos % (Auto) 5.0 % Baso % (Auto) 0.7 % Neut # (Auto) 2.22 (1.8-7.7) 10^3/u L Lymph # (Auto) 0.3 L (0.8-4.8) 10^3/u L [place] # (Auto) 0.3 (0.2-0.9) 10^3/u L Eos # (Auto) 0.2 (0.0-0.8) 10^3/u L Baso # (Auto) 0.0 (0.0-0.1) 10^3/u L Nucleated RBC % (a uto) 0 % Nucleated RBCs # 0.0 /100WBC PT 14.30 (12.1-14.9) SECO NDS INR 1.08 (0.8-1.2) APTT 30.7 (23.9-36.7) SECO NDS Sodium 134 L (136-145) mmol/L Potassium 3.0 L (3.5-5.1) mmol/L Chloride 101 (98-107) mmol/L Carbon Dioxide 28 (22-29) mmol/L Anion Gap 8.0 (5-19) BUN 10 (8-23) mg/dL Creatinine 0.7 (0.5-0.9) mg/dL GFR Calculation 85.1 L (90-130) mL/min Glucose 72 (65-115) mg/dL Calculated Osmolal ity 276 L (285-295) mOsm/k g Calcium 7.6 L (8.5-10.5) mg/dL Total Bilirubin 0.5 (0.15-1.2) mg/dL AST 37 H (0-32) U/L ALT 20 (0-33) U/L Alkaline Phosphata se 155 H (35-105) IU/L Ammonia (11-51) umol/L Total Protein 5.4 L (6.6-8.7) g/dL Albumin 2.9 L (3.5-5.2) g/dL Globulin 2.5 (1.3-4.6) g/dL Lipase 28 (13-60) U/L Urine Color (Yellow) Urine Appearance (CLEAR) Urine pH (5-7) Ur Specific Gravit y (1.005-1.030) Urine Protein (Negative) Urine Glucose (UA) (Normal) Urine Ketones (Negative) Urine Blood (Negative) Urine Nitrate (Negative) Urine Bilirubin (Negative) Urine Urobilinogen (Negative) mg/dL Ur Leukocyte Jennifer ase (Negative) 05/10/21 05/10/21 Range/Units 16:48 17:15 WBC (4.0-10.0) 10^3/ uL RBC (4.1-5.3) 10^6/u L Hgb (11.5-15.3) g/dL Hct (37.0-47.0) % MCV (81-99) fL MCH (28.0-34.0) pg MCHC (30.0-36.0) g/dL RDW (12.1-15.1) % Plt Count (130-400) 10^3/c mm MPV (7.4-10.4) fL Neut % (Auto) % Lymph % (Auto) % [place] % (Auto) % Eos % (Auto) % Baso % (Auto) % Neut # (Auto) (1.8-7.7) 10^3/u L Lymph # (Auto) (0.8-4.8) 10^3/u L [place] # (Auto) (0.2-0.9) 10^3/u L Eos # (Auto) (0.0-0.8) 10^3/u L Baso # (Auto) (0.0-0.1) 10^3/u L Nucleated RBC % (a uto) % Nucleated RBCs # /100WBC PT (12.1-14.9) SECO NDS INR (0.8-1.2) APTT (23.9-36.7) SECO NDS Sodium (136-145) mmol/L Potassium (3.5-5.1) mmol/L Chloride (98-107) mmol/L Carbon Dioxide (22-29) mmol/L Anion Gap (5-19) BUN (8-23) mg/dL Creatinine (0.5-0.9) mg/dL GFR Calculation (90-130) mL/min Glucose (65-115) mg/dL Calculated Osmolal ity (285-295) mOsm/k g Calcium (8.5-10.5) mg/dL Total Bilirubin (0.15-1.2) mg/dL AST (0-32) U/L ALT (0-33) U/L Alkaline Phosphata se (35-105) IU/L Ammonia 45 (11-51) umol/L Total Protein (6.6-8.7) g/dL Albumin (3.5-5.2) g/dL Globulin (1.3-4.6) g/dL Lipase (13-60) U/L Urine Color Yellow (Yellow) Urine Appearance Clear (CLEAR) Urine pH 7 (5-7) Ur Specific Gravit y 1.005 (1.005-1.030) Urine Protein Neg (Negative) Urine Glucose (UA) Norm (Normal) Urine Ketones Negative (Negative) Urine Blood Neg (Negative) Urine Nitrate Negative (Negative) Urine Bilirubin Neg (Negative) Urine Urobilinogen 4 H (Negative) mg/dL Ur Leukocyte Jennifer ase Negative (Negative) Discharge Plan Discharge Patient Disposition: Home Clinical Impression: End stage liver disease, Fluid retention Condition: Stable Prescriptions: No Action oxycodone 10 mg tablet 10 mg PO BID PRN (Reason: pain) 10 Days Qty: 20 RF: 0 furosemide 40 mg Tablet 40 mg PO DAILY@1200 RF: 0 levothyroxine 175 mcg Tablet 175 mcg PO DAILY@0900 RF: 0 propranolol 10 mg Tablet 10 mg PO BID@1200,0000 RF: 0 spironolactone 100 mg tablet 100 mg PO DAILY@1200 RF: 0 mirtazapine 45 mg tablet 45 mg PO DAILY@0000 RF: 0 Zoloft 50 mg tablet 50 mg PO DAILY@1200 RF: 0 duloxetine 60 mg capsule,delayed release(DR/EC) 60 mg PO DAILY@1200 RF: 0 Xifaxan 550 mg tablet 550 mg PO BID@1200,0000 RF: 0 lactulose 20 gram/30 mL solution 20 g PO BID@1200,0000 RF: 0 Discharge Orders: Discharge ED (Routine); Ordered 05/10/21 Ordered By: Joey Aleman Referrals: Paulo Taylor MD [Primary Care Provider] - Patient Instructions: Opioid Safety Coding Level of Care Code ED Mold Cutting Machine Operator for Holly Her
[2021-05-10 17:01] LABS: Basophils % 0.7 %; Eosinophils # 0.2 10^3/uL (0.0-0.8); Hematocrit 33.3 % (37.0-47.0); Hemoglobin 10.1 g/dL (11.5-15.3); Lymphocytes # 0.3 10^3/uL (0.8-4.8); Lymphocytes % 9.9 %; Mean Corpuscular HGB Conc 30.3 g/dL (30.0-36.0); Mean Corpuscular Hemoglobin 26.8 pg (28.0-34.0); Mean Corpuscular Volume 88.3 fL (81-99); Mean Platelet Volume 9.9 fL (7.4-10.4); Monocytes # 0.3 10^3/uL (0.2-0.9); Monocytes % 10.6 %; Neutrophils # 2.22 10^3/uL (1.8-7.7); Neutrophils % 73.5 %; Nucleated Red Blood Cells % 0 %; Platelet Count 126 10^3/cmm (130-400); Red Blood Count 3.77 10^6/uL (4.1-5.3); Red Cell Distribution Width 17.5 % (12.1-15.1)
[2021-05-10 17:17] LABS: Alanine Aminotransferase 20 U/L (0-33); Albumin Level 2.9 g/dL (3.5-5.2); Alkaline Phosphatase 155 IU/L (35-105); Ammonia 45 umol/L (11-51); Aspartate Amino Transferase 37 U/L (0-32); Blood Urea Nitrogen 10 mg/dL (8-23); Calcium 7.6 mg/dL (8.5-10.5); Carbon Dioxide 28 mmol/L (22-29); Chloride 101 mmol/L (98-107); Creatinine Clr Calc Pharmacy 87.9212; Globulin 2.5 g/dL (1.3-4.6); Glomerular Filtration Rate 85.1 mL/min (90-130); Glucose 72 mg/dL (65-115); Lipase 28 U/L (13-60); Osmolality Calculated 276 mOsm/kg (285-295); Sodium 134 mmol/L (136-145); Total Bilirubin 0.5 mg/dL (0.15-1.2); Total Protein 5.4 g/dL (6.6-8.7)
[2021-05-10 17:25] LABS: Add Urine Microscopic? NO; Charge for UA Resulting for Rev
[2021-05-10 17:42] LABS: INR 1.08 (0.8-1.2)
[2021-05-10 17:43] LABS: Partial Thromboplastin Time 30.7 SECONDS (23.9-36.7)
[2021-05-10 17:54] LABS: Bilirubin Urine Neg (Negative); Blood Urine Neg (Negative); Glucose Urine UA Norm (Normal); Ketones Urine Negative (Negative); Leukocyte Esterase Urine Negative (Negative); Nitrate Urine Negative (Negative); Protein Urine Neg (Negative); Specific Gravity, Urine 1.005 (1.005-1.030); Urine Appearance Clear (CLEAR); Urine Color Yellow (Yellow); Urobilinogen Urine 4 mg/dL (Negative); pH Urine 7 (5-7)
[2021-05-10 18:00] VITALS: BP 125/74; PULSE 71; RESP 18; O2SAT 100
[2021-05-10 18:28] VITALS: RESP 18
[2021-05-10] MEDS: morphine 4 mg/mL SDV 1 mL IVP (18:28)
[2021-05-10 18:31] VITALS: BP 130/85; PULSE 71; RESP 18; O2SAT 99
[2021-05-10 18:32] VITALS: BP 130/85; PULSE 71; RESP 18; TEMP 37.1; O2SAT 99
--- NOTE | 2021-05-14 15:10 | DCPLANNER ---
litigation manager had order to schedule an out patient diagnostic paracentesis. litigation manager faxed signed order to centralize scheduling, who will call patient with appointment information.
--- NOTE | 2021-05-21 14:05 | DCPLANNER ---
Patient has a paracentesis scheduled for Monday, May 21 at 11:45. Centralized scheduling will call patient with appointment information.
--- NOTE | 2021-05-24 14:24 | DCPLANNER ---
Patient had an appointment scheduled for 05.21.21 for a paracentesis - patient did not attend appointment.
== END 2021-05-10 18:34 | disposition home or self-care (01) ==
PROVIDERS: Emergency Provider Family Medicine; PCP Internal Medicine
DX: K72.90 Hepatic failure, unspecified without coma (principal); R60.9 Edema, unspecified; Z86.19 Personal history of other infectious and parasitic diseases
CPT/HCPCS: 36415; 71045; 80053; 81003; 82140; 83690; 85025; 85610; 85730; 96374; 99284; J2270

== ENCOUNTER 2021-05-13 21:44 | Emergency (ER) | payer MEDICAID, SELFPAY ==
[2021-05-13 22:02] VITALS: BP 131/95; PULSE 100; RESP 22; TEMP 37.1; O2SAT 95; BMI 25.0
[2021-05-13 22:13] LABS: Basophils # 0.1 10^3/uL (0.0-0.1); Basophils % 0.9 %; Eosinophils # 0.1 10^3/uL (0.0-0.8); Eosinophils % 2.2 %; Hematocrit 32.9 % (37.0-47.0); Hemoglobin 10.3 g/dL (11.5-15.3); Lymphocytes # 0.5 10^3/uL (0.8-4.8); Lymphocytes % 8.9 %; Mean Corpuscular HGB Conc 31.3 g/dL (30.0-36.0); Mean Corpuscular Hemoglobin 26.7 pg (28.0-34.0); Mean Corpuscular Volume 85.2 fL (81-99); Mean Platelet Volume 9.5 fL (7.4-10.4); Monocytes # 0.7 10^3/uL (0.2-0.9); Monocytes % 13.4 %; Neutrophils # 4.09 10^3/uL (1.8-7.7); Neutrophils % 74.2 %; Nucleated Red Blood Cells % 0 %; Platelet Count 129 10^3/cmm (130-400); Red Blood Count 3.86 10^6/uL (4.1-5.3); Red Cell Distribution Width 17.8 % (12.1-15.1); White Blood Count 5.5 10^3/uL (4.0-10.0)
--- NOTE | 2021-05-13 22:27 | W.ED.ABDPA2 ---
HPI - Abdominal Pain General: Chief Complaint: Abdominal Pain Stated Complaint: ABD PAIN Time Seen by Provider: 05/13/21 22:19 History of Present Illness: HPI narrative: Patient is a 60-year-old female comes to the ED with abdominal pain and swelling. Patient has a history of end-stage liver failure and ascites and had 2 L of fluid drained off her by Dr. Taylor on May 06. Patient says the swelling and pain has gotten worse. She rates the pain a 10 out of 10. She was seen here in the ED on May 10 and was discharged home and has a scheduled diagnostic paracentesis on , May 16. Patient says she takes oxycodone 10 mg for pain. She ran out of pain meds yesterday and had a telehealth visit with Dr. Taylor today. Associated Symptoms: Reports other (Abdominal swelling); Denies chills, constipation, diarrhea, dysuria, fever(s), hematochezia, hematuria, nausea and vomiting Review of Systems Const: Denies: fever(s), chills or fatigue Eyes: Denies: change in vision or eye discomfort ENMT: Denies: throat pain, odynophagia, nasal discharge or nasal congestion Card: Denies: chest pain, palpitations, edema, swelling of feet/ankles, dyspnea on exertion or orthopnea Resp: Denies: dyspnea, productive cough or non-productive cough GI: Reports: abdominal pain and other (Abdominal swelling); Denies: nausea, vomiting, diarrhea, constipation or hematochezia : Denies: flank pain, dysuria or hematuria Musc: Denies: neck pain, back pain or extremity swelling Skin/Breast: Denies: rash or new lesions Neuro: Denies: headache(s), numbness in extremities or weakness in extremities PFS ED PFSH: Medical History Ascites Cirrhosis Esophageal varices Hepatitis C Surgical History H/O esophagogastroduodenoscopy History of appendectomy open-1985 History of arthroscopic knee surgery bilateral 2002 History of cholecystectomy lap-2010 History of colonoscopy History of foot surgery rt foot second toe History of shoulder surgery left History of thyroidectomy, total History of total hysterectomy 2010 History of total knee replacement 2002 Social History Alcohol intake: former Adopted: No Marital status: Number of children: 2 service: No History of recent travel: No Physical Exam Const: COMMON NORMALS: patient oriented x3 and alert GENERAL APPEARANCE: cooperative and in distress (pt appears uncomfortable due to abdominal pain) HENMT: COMMON NORMALS: normocephalic and TM's normal bilaterally HEAD & SCALP: normocephalic EXTERNAL AUDITORY CANAL: Abnormal EAC present EAC laterality: left Details: erythema, edema and EAC tenderness TYMPANIC MEMBRANE: TM's normal bilaterally MOUTH: Normal oral and palatal mucosa present THROAT: posterior oropharynx normal and uvula midline Eye: COMMON NORMALS: Equal, round and reactive pupils present PUPIL: Yes Equal, round and reactive pupils present Neck/C-Spine: COMMON NORMALS: supple GENERAL: Yes normal visual inspection Resp: COMMON NORMALS: normal respiratory effort, No retractions, No use of accessory muscles and clear to auscultation bilaterally AUSCULTATION: clear to auscultation bilaterally Cardio: COMMON NORMALS: regular rate, regular rhythm, S1 normal heart sound present, S2 normal heart sound present, No gallops present (Cardio), No clicks present (Cardio), No murmurs present (Cardio) and Peripheral pulses 2+ throughout RATE: regular rate RHYTHM: regular rhythm HEART SOUNDS: S1 normal heart sound present and S2 normal heart sound present PERIPHERAL PULSES: Peripheral pulses 2+ throughout GI: COMMON NORMALS: Normal to inspection, nondistended, normoactive bowel sounds present, Soft to palpation and no masses PALPATION: Yes Soft to palpation, Yes Tenderness to palpation present (GI) (Generalized tenderness throughout abdomen) and Yes Ascites present (yes) : COMMON NORMALS: Yes no CVA tenderness BLADDER/KIDNEY EXAM: Yes no CVA tenderness Back/Pelvis: COMMON NORMALS: no CVA tenderness Extremity: COMMON NORMALS: normal to inspection Neuro: COMMON NORMALS: patient oriented x3 SENSORIUM/ORIENTATION: Yes alert GAIT: Yes Normal gait present Skin: GENERAL SKIN EXAM: dry skin Course Vital Signs: Vital signs: Vital Signs Temperature 98.8 F 05/13/21 22:02 Pulse Rate 74 05/14/21 01:47 Respiratory Rate 16 05/14/21 01:47 Blood Pressure 143/86 05/14/21 01:47 Pulse Oximetry 95 05/14/21 01:47 MDM - Abdominal Pain MDM Narrative: Medical decision making narrative: Patient is a 60-year-old female comes to the ED with abdominal pain and swelling. Patient also reports having left ear pain. Patient has a history of end-stage liver disease and ascites. She has a scheduled paracentesis with Dr. Sloan in a couple days on , May 16. Vitals are stable. Patient has generalized tenderness to her abdomen with ascites present. Patient does have otitis externa and left ear upon exam. Labs are unremarkable. CT of abdomen pelvis showed negative for any focal acute inflammatory process in the abdomen or pelvis. Cirrhotic liver noted and a large amount of ascites in abdomen noted as well. Patient's pain was controlled here in the ED with IV Dilaudid. I spoke with Dr. Mcgregor about patient case and he recommended controlling her pain then discharging her home since she has a set up procedure with Dr. Sloan in couple days. Patient diagnosed with end-stage liver disease, ascites and otitis externa. She was discharged home with a prescription for oxycodone 10 mg tablets signed by Dr. Mcgregor and Ciprodex eardrops. She was told to contact Dr. Sloan tomorrow morning to discuss possibly moving up paracentesis procedure sooner. Return to ED precautions given. Patient understood and agreed with plan. Lab Data: Attestation: I reviewed the patient's lab results. Labs: Lab Results 05/13/21 05/13/21 05/13/21 Range/Units 22:10 22:10 22:42 WBC 5.5 (4.0-10.0) 10^3/ uL RBC 3.86 L (4.1-5.3) 10^6/u L Hgb 10.3 L (11.5-15.3) g/dL Hct 32.9 L (37.0-47.0) % MCV 85.2 (81-99) fL MCH 26.7 L (28.0-34.0) pg MCHC 31.3 (30.0-36.0) g/dL RDW 17.8 H (12.1-15.1) % Plt Count 129 L (130-400) 10^3/c mm MPV 9.5 (7.4-10.4) fL Neut % (Auto) 74.2 % Lymph % (Auto) 8.9 % [place] % (Auto) 13.4 % Eos % (Auto) 2.2 % Baso % (Auto) 0.9 % Neut # (Auto) 4.09 (1.8-7.7) 10^3/u L Lymph # (Auto) 0.5 L (0.8-4.8) 10^3/u L [place] # (Auto) 0.7 (0.2-0.9) 10^3/u L Eos # (Auto) 0.1 (0.0-0.8) 10^3/u L Baso # (Auto) 0.1 (0.0-0.1) 10^3/u L Nucleated RBC % (a uto) 0 % Nucleated RBCs # 0.0 /100WBC Sodium 138 (136-145) mmol/L Potassium 3.6 (3.5-5.1) mmol/L Chloride 106 (98-107) mmol/L Carbon Dioxide 23 (22-29) mmol/L Anion Gap 12.6 (5-19) BUN 11 (8-23) mg/dL Creatinine 0.6 (0.5-0.9) mg/dL GFR Calculation 101.6 (90-130) mL/min Glucose 84 (65-115) mg/dL Calculated Osmolal ity 285 (285-295) mOsm/k g Calcium 8.0 L (8.5-10.5) mg/dL Total Bilirubin 0.6 (0.15-1.2) mg/dL AST 29 (0-32) U/L ALT 19 (0-33) U/L Alkaline Phosphata se 143 H (35-105) IU/L Total Protein 5.4 L (6.6-8.7) g/dL Albumin 2.9 L (3.5-5.2) g/dL Globulin 2.5 (1.3-4.6) g/dL Lipase 36 (13-60) U/L Urine Color Yellow (Yellow) Urine Appearance Clear (CLEAR) Urine pH 8 H (5-7) Ur Specific Gravit y 1.010 (1.005-1.030) Urine Protein Neg (Negative) Urine Glucose (UA) Norm (Normal) Urine Ketones Negative (Negative) Urine Blood Neg (Negative) Urine Nitrate Negative (Negative) Urine Bilirubin Neg (Negative) Prot Sulfosalicyli c Acd Negative (Negative) Urine Urobilinogen Norm (Negative) mg/dL Ur Leukocyte Jennifer ase Negative (Negative) Urine RBC 0-4 H (0-2) /hpf Urine WBC 0-4 H (0-5) /hpf Ur Squamous Epith Cells 0-4 H (0-5) /hpf Amorphous Sediment Not Reportable Urine Bacteria Trace (NONE) /hpf Imaging Data ^: CT Abd/Pel: Attestation: I personally reviewed and interpreted this imaging study as follows: Radiologist's impression: [employer] [address] [place] [address] CT Scan Report Signed Patient: Rae Salmeron Unit #: [id number] : 1960 Age/Sex: 60 / F ADM Date: 05/13/21 Loc: ER Room/Bed: Attending Dr: Ordering Provider/Ordering MD: Darwin Beard Date of Service: 05/13/21 Procedure(s): CT abdomen pelvis w con* [id number] Accession Number(s): [id number] Report Number: [id number] PROCEDURE INFORMATION: Exam: CT Abdomen And Pelvis With Contrast Exam date and time: 05/13/2021 10:55 PM Age: 60 years old Clinical indication: Abdominal pain; Generalized; Prior surgery; Surgery type: Appy, gb, hyst; Additional info: Generalized abdominal pain, ascites TECHNIQUE: Imaging protocol: Computed tomography of the abdomen and pelvis with contrast. Radiation optimization: All CT scans at this facility use at least one of these dose optimization techniques: automated exposure control; mA and/or kV adjustment per patient size (includes targeted exams where dose is matched to clinical indication); or iterative reconstruction. Contrast material: OMNI 300; Contrast volume: 95 ml; Contrast route: INTRAVENOUS (IV); COMPARISON: US abdomen lmt fluid [id number] 04/29/2021 10:50 AM RADIATION DOSE METRICS: Total DLP (mGy-cm): 1770.24 FINDINGS: Lungs: Right lower lobe atelectasis versus minimal infiltrate. Liver: Cirrhotic liver. Gallbladder and bile ducts: Gallbladder appears surgically absent. Pancreas: Normal. No ductal dilation. Spleen: Spleen enlarged to 16.5 cm. Adrenal glands: Normal. No mass. Kidneys and ureters: Normal. No hydronephrosis. Stomach and bowel: Unremarkable. No obstruction. No mucosal thickening. Appendix: No evidence of appendicitis. Intraperitoneal space: Large amount of ascites in the abdomen. Umbilical hernia containing omentum and ascites without bowel. Vasculature: Varices seen at the gastroesophageal junction. Lymph nodes: Unremarkable. No enlarged lymph nodes. Urinary bladder: Unremarkable as visualized. Reproductive: Unremarkable as visualized. Bones/joints: Unremarkable. No acute fracture. Soft tissues: Subcutaneous edema over the abdominal wall. CT/CT abdomen pelvis w con* [id number] IMPRESSION: 1. Negative for focal acute inflammatory process in the abdomen or pelvis. 2. Right lower lobe atelectasis versus minimal infiltrate. 3. Cirrhotic liver. 4. Gallbladder appears surgically absent. 5. Spleen enlarged to 16.5 cm. 6. Large amount of ascites in the abdomen. 7. Umbilical hernia containing omentum and ascites without bowel. 8. Subcutaneous edema over the abdominal wall. 9. Varices seen at the gastroesophageal junction. Radiation Dose CTDIVOL = (mGy): DLP = 1770.24 (mGy-cm) Dictated By: Ed Nelson MD Signed By: Ed Nelson MD Signed Date/Time: 05/14/2119 DD/ Discharge Plan Discharge Patient Disposition: Home Clinical Impression: End stage liver disease Ascites Qualifiers: Ascites type: other type Qualified Code(s): R18.8 - Other ascites Otitis externa Qualifiers: Otitis externa type: unspecified type Chronicity: acute Laterality: left Qualified Code(s): H60.502 - Unspecified acute noninfective otitis externa, left ear Condition: Stable Prescriptions: New Ciprodex 0.3-0.1 % drops,suspension 4 drp otic (ear) BID 7 Days Qty: 7.5 RF: 0 No Action oxycodone 10 mg tablet 10 mg PO BID PRN (Reason: pain) 10 Days Qty: 20 RF: 0 furosemide 40 mg Tablet 40 mg PO DAILY@1200 RF: 0 levothyroxine 175 mcg Tablet 175 mcg PO DAILY@0900 RF: 0 propranolol 10 mg Tablet 10 mg PO BID@1200,0000 RF: 0 spironolactone 100 mg tablet 100 mg PO DAILY@1200 RF: 0 mirtazapine 45 mg tablet 45 mg PO DAILY@0000 RF: 0 Zoloft 50 mg tablet 50 mg PO DAILY@1200 RF: 0 duloxetine 60 mg capsule,delayed release(DR/EC) 60 mg PO DAILY@1200 RF: 0 Xifaxan 550 mg tablet 550 mg PO BID@1200,0000 RF: 0 lactulose 20 gram/30 mL solution 20 g PO BID@1200,0000 RF: 0 Discharge Orders: Discharge ED (Routine); Ordered 05/14/21 Ordered By: Darwin Beard Referrals: Paulo Taylor MD [Primary Care Provider] - Discharge Diet: Regular Discharge Activity: Increase activity as tolerated Patient Instructions: Otitis Externa (ED), Liver Disease Diet (GEN), Ascites (ED), Opioid Safety Activity Restrictions/Additional Instructions: Follow-up with medical provider as directed. Contact the general surgeon Dr. Sloan tomorrow morning and see if he can have your paracentesis procedure moved up. Take medications as prescribed. Return to the ER or your medical provider if condition worsens. Please read and understand discharge instructions. Thank you for choosing [facility] for your healthcare needs today. Please realize this is an emergency room and that we are providing you with a medical screening exam and this may not be complete and all inclusive of all the testing and or work up that you may need to determine your ailment or severity of your illness. It is very important that you follow up as instructed or that you return to the Emergency Department should you have concerns or if your condition changes or worsens in any way. Coding Level of Care Code ED Record Tabulating Clerk for Holly Her Exam Comprehensive
[2021-05-13 22:34] LABS: Alanine Aminotransferase 19 U/L (0-33); Albumin Level 2.9 g/dL (3.5-5.2); Alkaline Phosphatase 143 IU/L (35-105); Anion Gap 12.6 (5-19); Aspartate Amino Transferase 29 U/L (0-32); Blood Urea Nitrogen 11 mg/dL (8-23); Carbon Dioxide 23 mmol/L (22-29); Chloride 106 mmol/L (98-107); Globulin 2.5 g/dL (1.3-4.6); Glomerular Filtration Rate 101.6 mL/min (90-130); Glucose 84 mg/dL (65-115); Lipase 36 U/L (13-60); Osmolality Calculated 285 mOsm/kg (285-295); Potassium 3.6 mmol/L (3.5-5.1); Sodium 138 mmol/L (136-145); Total Bilirubin 0.6 mg/dL (0.15-1.2); Total Protein 5.4 g/dL (6.6-8.7)
[2021-05-13 22:37] VITALS: RESP 18
[2021-05-13] MEDS: ondansetron 2 mg/ML SDV 2 mL 4 MG IVP (22:37)
[2021-05-13] MEDS: morphine 4 mg/mL SDV 1 mL IVP (22:37)
--- NOTE | 2021-05-13 22:55 | CTR_ITS ---
PROCEDURE INFORMATION: Exam: CT Abdomen And Pelvis With Contrast Exam date and time: 05/13/2021 10:55 PM Age: 60 years old Clinical indication: Abdominal pain; Generalized; Prior surgery; Surgery type: Appy, gb, hyst; Additional info: Generalized abdominal pain, ascites TECHNIQUE: Imaging protocol: Computed tomography of the abdomen and pelvis with contrast. Radiation optimization: All CT scans at this facility use at least one of these dose optimization techniques: automated exposure control; mA and/or kV adjustment per patient size (includes targeted exams where dose is matched to clinical indication); or iterative reconstruction. Contrast material: OMNI 300; Contrast volume: 95 ml; Contrast route: INTRAVENOUS (IV); COMPARISON: US abdomen lmt fluid [id number] 04/29/2021 10:50 AM RADIATION DOSE METRICS: Total DLP (mGy-cm): 1770.24 FINDINGS: Lungs: Right lower lobe atelectasis versus minimal infiltrate. Liver: Cirrhotic liver. Gallbladder and bile ducts: Gallbladder appears surgically absent. Pancreas: Normal. No ductal dilation. Spleen: Spleen enlarged to 16.5 cm. Adrenal glands: Normal. No mass. Kidneys and ureters: Normal. No hydronephrosis. Stomach and bowel: Unremarkable. No obstruction. No mucosal thickening. Appendix: No evidence of appendicitis. Intraperitoneal space: Large amount of ascites in the abdomen. Umbilical hernia containing omentum and ascites without bowel. Vasculature: Varices seen at the gastroesophageal junction. Lymph nodes: Unremarkable. No enlarged lymph nodes. Urinary bladder: Unremarkable as visualized. Reproductive: Unremarkable as visualized. Bones/joints: Unremarkable. No acute fracture. Soft tissues: Subcutaneous edema over the abdominal wall. CT/CT abdomen pelvis w con* [id number] IMPRESSION: 1. Negative for focal acute inflammatory process in the abdomen or pelvis. 2. Right lower lobe atelectasis versus minimal infiltrate. 3. Cirrhotic liver. 4. Gallbladder appears surgically absent. 5. Spleen enlarged to 16.5 cm. 6. Large amount of ascites in the abdomen. 7. Umbilical hernia containing omentum and ascites without bowel. 8. Subcutaneous edema over the abdominal wall. 9. Varices seen at the gastroesophageal junction. Radiation Dose CTDIVOL = (mGy): DLP = 1770.24 (mGy-cm)
[2021-05-13 23:02] LABS: Bilirubin Urine Neg (Negative); Blood Urine Neg (Negative); Glucose Urine UA Norm (Normal); Ketones Urine Negative (Negative); Leukocyte Esterase Urine Negative (Negative); Nitrate Urine Negative (Negative); Protein Urine Neg (Negative); Sulfosalicylic Acid Urine Negative (Negative); Urine Appearance Clear (CLEAR); Urine Color Yellow (Yellow); Urobilinogen Urine Norm (Negative); pH Urine 8 (5-7)
[2021-05-13 23:03] LABS: Add Urine Culture? No; Bacteria Urine TRACE /hpf; RBC Urine 0-4 /hpf (0-2); Squamous Epithelial Cell Urine 0-4 /hpf (0-5); WBC Urine 0-4 /hpf (0-5)
[2021-05-13] MEDS: iohexol 300 mg/mL 100 mL Btl IV (23:10)
[2021-05-14 00:04] VITALS: RESP 18
[2021-05-14] MEDS: HYDROmorphone 1 mg/mL INJ 1 mL IVP (00:04)
[2021-05-14] MEDS: oxyCODONE 10 mg ER (12 HR) Tablet PO (01:46)
[2021-05-14 01:47] VITALS: BP 143/86; PULSE 74; RESP 16; O2SAT 95
== END 2021-05-14 01:48 | disposition home or self-care (01) ==
PROVIDERS: Emergency Provider Physician Assistant; PCP Internal Medicine
DX: R18.8 Other ascites (principal); K72.90 Hepatic failure, unspecified without coma; H60.92 Unspecified otitis externa, left ear; K74.60 Unspecified cirrhosis of liver; B19.20 Unspecified viral hepatitis C without hepatic coma; Z87.891 Personal history of nicotine dependence
CPT/HCPCS: 74177; 80053; 81001; 83690; 85025; 87635; 96374; 96375; 99284; J1170; J2270; J2405; Q9967

== ENCOUNTER 2021-05-15 10:00 | Day surgery (SDC) | payer MEDICAID, SELFPAY ==
[2021-05-14 16:59] VITALS: BMI 28.1
[2021-05-15] VITALS (7 sets, daily range): BP systolic 106–128; BP diastolic 61–77; PULSE 74–91; RESP 15–18; TEMP 36.3–36.6; O2SAT 96–99
--- NOTE | 2021-05-15 10:43 | W.PM.OPSUD ---
Surgery/Procedure H&P Update DATE OF PROCEDURE: May 15, 2021 DATE H&P PERFORMED: 05/07/21 H&P UPDATE INFORMATION: I have reviewed H&P completed within last 30 days, I have examined patient prior to procedure and No changes to prior documentation PREOP DIAGNOSIS: ascites PLANNED PROCEDURE: Operation Date: 05/15/21 12:15 Proposed Procedures p Peritoneal Catheter Insertion [id number] r18.8(Not Applicable) - Renny Sloan MD
[2021-05-15] MEDS: sodium chloride 0.9% 1,000 ML 30 ML IV (10:46)
--- NOTE | 2021-05-15 11:38 | PM.OP ---
Operative Report Date of procedure: May 15, 2021 Pre-op Diagnosis: Ascites secondary to end-stage liver disease Post-op diagnosis: same Procedure Done: Placement of tunneled peritoneal catheter Ultrasound guidance and interpretation for placement of catheter Surgeon: Renny Sloan Anesthesia: General Condition: stable Disposition: PACU Procedure: The patient was taken to the operating room and placed under MAC after IV antibiotic had been administered. The abdomen was prepped and draped in a sterile manner. Under ultrasound guidance the site of planned entry was marked in the right lower quadrant after ensuring that there was no adjacent bowel. 1% lidocaine with 0.5% Marcaine was infiltrated at the catheter entry site. Introducer needle was advanced under ultrasound guidance to access the peritoneal cavity, acetic fluid was aspirated a guidewire was passed into the introducer needle as it was removed. The skin incision was extended using 11 blade and dilator sheath was passed over the guidewire and the inner dilator and guidewire was removed. A double cuff peritoneal catheter was introduced into the peritoneal cavity as the peel-away sheath was removed. The proximal end of the catheter was attached to the tunneler and passed laterally subcutaneously to exit about 5 cm from the site of entry into the peritoneal cavity. The skin incision was closed using 4-0 Monocryl and Dermabond. The ascites was drained, sterile dressings placed and the patient was transferred to recovery room in stable condition.
--- NOTE | 2021-05-15 11:51 | ANES.PREANE2 ---
Pre-Anesthetic Assessment Pre-Anesthetic Assessment: Height/Weight: Height 1.7 m Weight 81.647 kg Temp Pulse Resp BP Pulse Ox 97.8 F 74 17 106/77 96 05/15/21 11:50 05/15/21 11:50 05/15/21 11:50 05/15/21 11:50 05/15/21 11:50 Preop Diagnosis: Ascites secondary to end-stage liver disease Proposed Procedure: Operation Date: 05/15/21 12:15 Proposed Procedures p Peritoneal Catheter Insertion [id number] r18.8(Not Applicable) - Renny Sloan MD Was Beta Hieu taken within 24 hours: N/A Was Clonidine taken within 24 hours: N/A Last intake: Intake Last Liquid Date 05/15/21 Last Liquid Time 08:00 Last Solid Date 05/14/21 Last Solid Time 23:30 Social: Social History: Tobacco and No alcohol Exam: Pre-Anes Outpt Exam: alert, oriented x 3 and regular rate & rhythm Airway: Submandibular: WNL Cervical ROM: WNL MP: 2 Dentition: False Pulmonary: Pulmonary: COPD CV/HEM: CV/HEM: CHF Hepatic: Hepatic: Cirrohsis and Hepatitis (C) Neuropsych: Neuropsych: Anxiety Comments: Chronic pain Anesthetic Plan: ASA status: 3 Anesthesia: MAC Risk of > 500 ml blood loss (7ml/kg in children): No Meds/Allergies Current Medications: Current Medications Generic Name Dose Route Start Last Admin Trade Name Freq PRN Reason Stop Dose Admin Sodium Chloride 1,000 mls @ 30 ml s/hr 05/15/21 10:15 05/15/21 10:46 Sodium Chloride 0.9% IV 05/16/21 10:14 30 mls/hr .Q24H YOSELIN Administration PFSH Anesthesia PFSH: Medical History (Updated 05/15/21 @ 11:37 by Renny Sloan MD) Ascites Cirrhosis Esophageal varices Hepatitis C Surgical History (Updated 05/15/21 @ 11:37 by Renny Sloan MD) H/O esophagogastroduodenoscopy History of appendectomy open-1985 History of arthroscopic knee surgery bilateral 2002 History of cholecystectomy lap-2010 History of colonoscopy History of foot surgery rt foot second toe History of shoulder surgery left History of thyroidectomy, total History of total hysterectomy 2010 History of total knee replacement 2002 S/P abdominal paracentesis Status post surgery (05/15/21) Peritoneal catheter for ascites Social History Alcohol intake: former Adopted: No Marital status: Number of children: 2 service: No History of recent travel: No Data Anesthesia Cardiac Studies: No Data to Display
[2021-05-15] MEDS: oxyCODONE 5 mg IR Tab/Cap 10 MG PO (12:10)
--- NOTE | 2021-05-15 15:40 | ANE.PACU2 ---
Inpatient post-anesthesia follow up: Airway intact: Yes Vital signs: Temperature 97.9 F Pulse Rate 75 Respiratory Rate 17 Blood Pressure 107/67 Pulse Oximetry 98 Oxygen Delivery Me thod Room Air Oxygen Flow Rate Fraction of Inspir ed Oxygen Hydration adequate: Yes Nausea and vomiting: No Pain level: 2 Mental status: Baseline
== END 2021-05-15 13:51 | disposition home or self-care (01) ==
PROVIDERS: PCP Internal Medicine; Visit Provider Surgery
PROC: (CPT 49406; principal; 2021-05-15 12:15)
DX: R18.8 Other ascites (principal); K72.90 Hepatic failure, unspecified without coma; Z86.19 Personal history of other infectious and parasitic diseases
CPT/HCPCS: 49406; 96365; C1750; J0690; J2250; J2370; J2704; J3490; J7030

== ENCOUNTER 2021-05-26 21:35 | Emergency (ER) | payer MEDICAID, SELFPAY ==
[2021-05-26 21:36] VITALS: BP 112/84; PULSE 102; RESP 22; TEMP 37.2; O2SAT 97; BMI 25.0
--- NOTE | 2021-05-26 22:03 | CTR_ITS ---
PROCEDURE INFORMATION: Exam: CT Abdomen And Pelvis With Contrast Exam date and time: 05/26/2021 10:03 PM Age: 61 years old Clinical indication: Bloating and nausea; Prior surgery; Surgery date: <1 month; Surgery type: Peritoneal drain, gb, appy, hyst; Patient HX: C/O abd pain, distention and weakness HX of cirrhosis. Hep-c and ascites; Additional info: Abdominal pain, weakness, peritoneal drain TECHNIQUE: Imaging protocol: Computed tomography of the abdomen and pelvis with contrast. Radiation optimization: All CT scans at this facility use at least one of these dose optimization techniques: automated exposure control; mA and/or kV adjustment per patient size (includes targeted exams where dose is matched to clinical indication); or iterative reconstruction. Contrast material: OMNI 300; Contrast volume: 95 ml; Contrast route: INTRAVENOUS (IV); COMPARISON: CT abdomen pelvis w con* [id number] 05/13/2021 11:06 PM RADIATION DOSE METRICS: Total DLP (mGy-cm): 1625.03 FINDINGS: Tubes, catheters and devices: There is a percutaneous drainage catheter seen in the right flank. Liver: There is a nodular contour of the liver compatible with cirrhosis. Gallbladder and bile ducts: Status post cholecystectomy. Pancreas: Normal. No ductal dilation. Spleen: The spleen is prominent measuring 17.6 cm craniocaudal dimension. Adrenal glands: Normal. No mass. Kidneys and ureters: Normal. No hydronephrosis. Stomach and bowel: Unremarkable. No obstruction. No mucosal thickening. Appendix: No evidence of appendicitis. Intraperitoneal space: There is a large volume of ascites. There is an umbilical hernia present containing mesenteric and some ascites fluid. Vasculature: Gastroesophageal varices Lymph nodes: Unremarkable. No enlarged lymph nodes. Urinary bladder: Unremarkable as visualized. Reproductive: Status post hysterectomy. Bones/joints: Unremarkable. No acute fracture. Soft tissues: Unremarkable. CT/CT abdomen pelvis w con* [id number] IMPRESSION: 1. There has been placement of a percutaneous drainage tube within the right flank. 2. The nodular contour of the liver compatible with cirrhosis. 3. Large volume of ascites 4. Splenomegaly 5. Gastroesophageal varices again seen Radiation Dose CTDIVOL = (mGy): DLP = 1625.03 (mGy-cm)
--- NOTE | 2021-05-26 22:03 | XRR_ITS ---
PROCEDURE INFORMATION: Exam: XR Chest Exam date and time: 05/26/2021 10:03 PM Age: 61 years old Clinical indication: Other: Weakness TECHNIQUE: Imaging protocol: XR of the chest. Views: 1 view. COMPARISON: CR XR chest 1V portable [id number] 05/10/2021 4:44 PM FINDINGS: Lungs: There is a background of emphysema and pulmonary fibrosis. Minimal strandy opacities are seen in the left lung base most probably representing parenchymal and pleural scarring versus atelectasis. Pleural spaces: See Lungs finding. Heart/Mediastinum: Unremarkable. No cardiomegaly. Bones/joints: Unremarkable. XR/XR chest 1V portable [id number] IMPRESSION: 1. Emphysematous changes and pulmonary fibrosis. 2. Linear opacities in the left lung base likely represents parenchymal pleural scarring versus atelectasis.
[2021-05-26] MEDS: morphine 4 mg/mL SDV 1 mL IVP (22:31)
[2021-05-26] MEDS: ondansetron 2 mg/ML SDV 2 mL 4 MG IVP (22:32)
[2021-05-26 22:34] VITALS: BP 110/72; PULSE 92; RESP 18; O2SAT 97
[2021-05-26 22:39] LABS: Add Urine Microscopic? NO; Charge for UA Resulting for Rev
[2021-05-26 22:40] LABS: Basophils % 0.8 %; Eosinophils # 0.2 10^3/uL (0.0-0.8); Hematocrit 38.3 % (37.0-47.0); Hemoglobin 11.5 g/dL (11.5-15.3); Lymphocytes # 0.5 10^3/uL (0.8-4.8); Lymphocytes % 9.8 %; Mean Corpuscular Hemoglobin 26.7 pg (28.0-34.0); Mean Corpuscular Volume 89.1 fl (81-99); Mean Platelet Volume 10.3 fL (7.4-10.4); Monocytes # 0.6 10^3/uL (0.2-0.9); Monocytes % 11.9 %; Neutrophils # 3.94 10^3/uL (1.8-7.7); Neutrophils % 74.3 %; Nucleated Red Blood Cells % 0 %; Platelet Count 146 10^3/cmm (130-400); Red Cell Distribution Width 18.3 % (12.1-15.1); White Blood Count 5.3 10^3/uL (4.0-10.0)
[2021-05-26 22:42] LABS: Bilirubin Urine Neg (Negative); Blood Urine Neg (Negative); Glucose Urine UA Norm (Normal); Ketones Urine Negative (Negative); Leukocyte Esterase Urine Negative (Negative); Nitrate Urine Negative (Negative); Protein Urine Neg (Negative); Specific Gravity, Urine 1.015 (1.005-1.030); Urine Appearance Clear (CLEAR); Urine Color Yellow (Yellow); Urobilinogen Urine Norm (Negative); pH Urine 5 (5-7)
[2021-05-26] MEDS: iohexol 300 mg/mL 100 mL Btl IV (22:57)
[2021-05-26 23:00] VITALS: BP 113/69; PULSE 89; RESP 16; O2SAT 97
[2021-05-26 23:19] LABS: Alanine Aminotransferase 20 U/L (0-33); Albumin Level 2.9 g/dL (3.5-5.2); Alkaline Phosphatase 169 IU/L (35-105); Blood Urea Nitrogen 19 mg/dL (8-23); C Reactive Protein 5.8 mg/L (0.0-4.9); Calcium 7.8 mg/dL (8.5-10.5); Carbon Dioxide 22 mmol/L (22-29); Chloride 103 mmol/L (98-107); Globulin 2.3 g/dL (1.3-4.6); Glomerular Filtration Rate 101.3 mL/min (90-130); Glucose 97 mg/dL (65-115); Lipase 72 U/L (13-60); Osmolality Calculated 280 mOsm/kg (285-295); Sodium 134 mmol/L (136-145); Total Bilirubin 0.4 mg/dL (0.15-1.2); Total Protein 5.2 g/dL (6.6-8.7)
[2021-05-26 23:30] VITALS: BP 106/66; PULSE 89; RESP 18; O2SAT 94
[2021-05-26 23:38] LABS: Aspartate Amino Transferase 41 U/L (0-32)
[2021-05-26 23:45] LABS: INR 1.24 (0.8-1.2)
[2021-05-27 00:25] LABS: Appearance, Peritoneal Fluid Clear (Clear); Color, Peritoneal Fluid Colorless (Pale Yellow)
[2021-05-27 00:29] LABS: Mononuclear #, Pertinoneal Fl 0.153 10^3/uL; Polynuclear # Cells, Perit 0.024 10^3/uL
[2021-05-27 00:30] VITALS: BP 114/74; PULSE 89; RESP 16; O2SAT 96
[2021-05-27 00:49] LABS: RBC Pertioneal Fluid 0 10^3/uL; WBC Peritoneal Fluid 177 /uL
[2021-05-27 01:30] VITALS: PULSE 80; RESP 18; O2SAT 94
[2021-05-27 02:30] VITALS: PULSE 80; RESP 16; O2SAT 93
[2021-05-27 03:12] VITALS: BP 109/65; PULSE 76; RESP 16; O2SAT 99
--- NOTE | 2021-05-27 03:13 | PC.NURSE ---
peritoneal drain opened and drained per dr. gavin instructions. 3.8 liters clear yellow urine removed from abdomen. will monitor for 30 mins and then allow to leave.
[2021-05-27 03:32] VITALS: BP 102/61; PULSE 75; RESP 16; O2SAT 95
[2021-05-27 03:57] VITALS: BP 102/61; PULSE 75; RESP 16; TEMP 37.2; O2SAT 95
--- NOTE | 2021-05-27 07:03 | ED_ITS ---
HPI - Weakness General: Chief complaint: Weakness Stated complaint: general weakness, nausea Time Seen by Provider: 05/26/21 21:41 History of Present Illness: HPI Narrative: 61-year-old female with a history of chronic liver disease and chronic ascites. She presents with generalized weakness. She states she has been nauseated, having abdominal pain, and generally weak for the past couple of days. She is supposed to use her peritoneal drain nightly to drain her ascites, but has not done so in 2 days. She states she is only been using it every 2 to 3 days she denies any fever. She states she has been sweating at night. She denies blood in the stool. She does have a history of esophageal varices as well. MD Complaint: generalized weakness Onset (ago): day(s) Duration: constant Location: generalized Migration: none Severity: moderate Quality: other Relieving factors: none Exacerbating factors: exertion Context: other Associated symptoms: Reports chills, decreased appetite, diaphoresis and nausea; Denies chest pain, confusion, melena, dysuria, fever(s), headache(s), myalgias, rash, short of breath or vomiting Review of Systems Const: Reports: chills and diaphoresis; Denies: fever(s) Card: Denies: chest pain GI: Reports: nausea; Denies: vomiting or melena : Denies: dysuria Neuro: Denies: headache(s) or confusion PFSH ED PFSH: Medical History (Updated 05/27/21 @ 03:02 by Avi Waters DO) Ascites Cirrhosis Esophageal varices Hepatitis C Surgical History (Updated 05/15/21 @ 11:37 by Renny Sloan MD) H/O esophagogastroduodenoscopy History of appendectomy open-1985 History of arthroscopic knee surgery bilateral 2003 History of cholecystectomy lap-2010 History of colonoscopy History of foot surgery rt foot second toe History of shoulder surgery left History of thyroidectomy, total History of total hysterectomy 2011 History of total knee replacement 2002 S/P abdominal paracentesis Status post surgery (05/15/21) Peritoneal catheter for ascites Social History Alcohol intake: former Adopted: No Marital status: Number of children: 2 service: No History of recent travel: No Physical Exam Const: COMMON NORMALS: no acute distress GENERAL APPEARANCE: frail appearing HENMT: COMMON NORMALS: normocephalic HEAD & SCALP: normocephalic Eye: COMMON NORMALS: Equal, round and reactive pupils present and EOMs intact bilaterally PUPIL: Yes Equal, round and reactive pupils present Chest: COMMONS NORMALS: normal inspection of the chest Resp: COMMON NORMALS: normal respiratory effort AUSCULTATION: no rales and no rhonchi Cardio: COMMON NORMALS: regular rate, regular rhythm and Peripheral pulses 2+ throughout RATE: regular rate RHYTHM: regular rhythm PERIPHERAL PULSES: Peripheral pulses 2+ throughout GI: INSPECTION: Yes abdominal distension PALPATION: Yes Tenderness to palpation present (GI) (Diffuse) and No Guarding due to palpation present (GI) PERCUSSION: dullness to percussion Neuro: ROSE COMA SCALE: document GCS findings Rose coma scale eye opening: Spontaneous Rose coma scale verbal response: Orientated Rose coma scale motor response: Obey commands Rose coma scale total score: 15 Course Vital Signs: Vital signs: Vital Signs Temperature 98.9 F 05/27/21 03:57 Pulse Rate 75 05/27/21 03:57 Respiratory Rate 16 05/27/21 03:57 Blood Pressure 102/61 05/27/21 03:57 Pulse Oximetry 95 05/27/21 03:57 MDM - Weakness MDM Narrative: Medical decision making narrative: 61-year-old female with chronic liver disease and ascites. She presents with nausea and belly pain. She has a peritoneal drain present. White blood cell count is only 5.3. Inflammatory markers were not elevated. Her BMP is normal peritoneal fluid analysis showed only 177 whites. Increased monocytes present. Not a presentation of spontaneous bacterial peritonitis. CT reveals no evidence of infection or complication. Drain was opened, and 3.8 L were drained without any complication. The patient felt improved, and was allowed home. Lab Data: Labs: Lab Results 05/26/21 05/26/21 05/26/21 Range/Units 22:34 22:34 22:45 WBC 5.3 (4.0-10.0) 10^3/ uL RBC 4.30 (4.1-5.3) 10^6/u L Hgb 11.5 (11.5-15.3) g/dL Hct 38.3 (37.0-47.0) % MCV 89.1 (81-99) fl MCH 26.7 L (28.0-34.0) pg MCHC 30.0 (30.0-36.0) g/dL RDW 18.3 H (12.1-15.1) % Plt Count 146 (130-400) 10^3/c mm MPV 10.3 (7.4-10.4) fL Neut % (Auto) 74.3 % Lymph % (Auto) 9.8 % Fergus % (Auto) 11.9 % Eos % (Auto) 3.0 % Baso % (Auto) 0.8 % Neut # (Auto) 3.94 (1.8-7.7) 10^3/u L Lymph # (Auto) 0.5 L (0.8-4.8) 10^3/u L Fergus # (Auto) 0.6 (0.2-0.9) 10^3/u L Eos # (Auto) 0.2 (0.0-0.8) 10^3/u L Baso # (Auto) 0.0 (0.0-0.1) 10^3/u L Nucleated RBC % (a uto) 0 % Nucleated RBCs # 0.0 /100WBC PT (12.1-14.9) SECO NDS INR (0.8-1.2) Sodium 134 L (136-145) mmol/L Potassium 5.0 (3.5-5.1) mmol/L Chloride 103 (98-107) mmol/L Carbon Dioxide 22 (22-29) mmol/L Anion Gap 14.0 (5-19) BUN 19 (8-23) mg/dL Creatinine 0.6 (0.5-0.9) mg/dL GFR Calculation 101.3 (90-130) mL/min Glucose 97 (65-115) mg/dL Calculated Osmolal ity 280 L (285-295) mOsm/k g Calcium 7.8 L (8.5-10.5) mg/dL Total Bilirubin 0.4 (0.15-1.2) mg/dL AST 41 H (0-32) U/L ALT 20 (0-33) U/L Alkaline Phosphata se 169 H (35-105) IU/L C-Reactive Protein 5.8 H (0.0-4.9) mg/L Total Protein 5.2 L (6.6-8.7) g/dL Albumin 2.9 L (3.5-5.2) g/dL Globulin 2.3 (1.3-4.6) g/dL Lipase 72 H (13-60) U/L Urine Color Yellow (Yellow) Urine Appearance Clear (CLEAR) Urine pH 5 (5-7) Ur Specific Gravit y 1.015 (1.005-1.030) Urine Protein Neg (Negative) Urine Glucose (UA) Norm (Normal) Urine Ketones Negative (Negative) Urine Blood Neg (Negative) Urine Nitrate Negative (Negative) Urine Bilirubin Neg (Negative) Urine Urobilinogen Norm (Negative) mg/dL Ur Leukocyte Jennifer ase Negative (Negative) Peritoneal Color (Pale Yellow) Peritoneal Appeara nce (Clear) Peritoneal WBC /uL Peritoneal RBC 10^3/uL Periton Mononu # A uto 10^3/uL Mononuclear WBCs % % Polynuclear WBCs % % Perit Polynuc WBCs # 10^3/uL 05/26/21 05/27/21 Range/Units 23:15 00:07 WBC (4.0-10.0) 10^3/ uL RBC (4.1-5.3) 10^6/u L Hgb (11.5-15.3) g/dL Hct (37.0-47.0) % MCV (81-99) fl MCH (28.0-34.0) pg MCHC (30.0-36.0) g/dL RDW (12.1-15.1) % Plt Count (130-400) 10^3/c mm MPV (7.4-10.4) fL Neut % (Auto) % Lymph % (Auto) % Fergus % (Auto) % Eos % (Auto) % Baso % (Auto) % Neut # (Auto) (1.8-7.7) 10^3/u L Lymph # (Auto) (0.8-4.8) 10^3/u L Fergus # (Auto) (0.2-0.9) 10^3/u L Eos # (Auto) (0.0-0.8) 10^3/u L Baso # (Auto) (0.0-0.1) 10^3/u L Nucleated RBC % (a uto) % Nucleated RBCs # /100WBC PT 15.90 H (12.1-14.9) SECO NDS INR 1.24 H (0.8-1.2) Sodium (136-145) mmol/L Potassium (3.5-5.1) mmol/L Chloride (98-107) mmol/L Carbon Dioxide (22-29) mmol/L Anion Gap (5-19) BUN (8-23) mg/dL Creatinine (0.5-0.9) mg/dL GFR Calculation (90-130) mL/min Glucose (65-115) mg/dL Calculated Osmolal ity (285-295) mOsm/k g Calcium (8.5-10.5) mg/dL Total Bilirubin (0.15-1.2) mg/dL AST (0-32) U/L ALT (0-33) U/L Alkaline Phosphata se (35-105) IU/L C-Reactive Protein (0.0-4.9) mg/L Total Protein (6.6-8.7) g/dL Albumin (3.5-5.2) g/dL Globulin (1.3-4.6) g/dL Lipase (13-60) U/L Urine Color (Yellow) Urine Appearance (CLEAR) Urine pH (5-7) Ur Specific Gravit y (1.005-1.030) Urine Protein (Negative) Urine Glucose (UA) (Normal) Urine Ketones (Negative) Urine Blood (Negative) Urine Nitrate (Negative) Urine Bilirubin (Negative) Urine Urobilinogen (Negative) mg/dL Ur Leukocyte Jennifer ase (Negative) Peritoneal Color Colorless (Pale Yellow) Peritoneal Appeara nce Clear (Clear) Peritoneal WBC 177 /uL Peritoneal RBC 0 10^3/uL Periton Mononu # A uto 0.153 10^3/uL Mononuclear WBCs % 86.800 % Polynuclear WBCs % 13.600 % Perit Polynuc WBCs # 0.024 10^3/uL Discharge Plan Discharge Patient Disposition: Home Clinical Impression: Ascites Qualifiers: Ascites type: other type Qualified Code(s): R18.8 - Other ascites Condition: Stable Prescriptions: No Action oxycodone 10 mg tablet 10 mg PO BID PRN (Reason: pain) 10 Days Qty: 20 RF: 0 furosemide 40 mg Tablet 40 mg PO DAILY@1200 RF: 0 levothyroxine 175 mcg Tablet 175 mcg PO DAILY@0900 RF: 0 oxycodone 10 mg tablet 10 mg PO BID PRN (Reason: pain) Qty: 20 RF: 0 spironolactone 100 mg tablet 100 mg PO DAILY@1200 RF: 0 mirtazapine 45 mg tablet 45 mg PO DAILY@0000 RF: 0 sertraline [Zoloft] 50 mg tablet 50 mg PO DAILY@1200 RF: 0 duloxetine 60 mg capsule,delayed release(DR/EC) 60 mg PO DAILY@1200 RF: 0 Xifaxan 550 mg tablet 550 mg PO BID@1200,0000 RF: 0 lactulose 20 gram/30 mL solution 20 g PO BID@1200,0000 RF: 0 Discharge Orders: Discharge ED (Routine); Ordered 05/27/21 Ordered By: Avi Waters Referrals: Paulo Taylor MD [Primary Care Provider] - 4-7 days Discharge Diet: Advance as tolerated Discharge Activity: Increase activity as tolerated Patient Instructions: Ascites (ED) Activity Restrictions/Additional Instructions: Continue to use your peritoneal drain daily. Monitor your temperature twice daily. Return for fever greater than 100, vomiting liquids or medications, significant mental status changes, other concerning symptoms. Coding Level of Care Code ED Mail Order Sorter for Holly Her
== END 2021-05-27 03:58 | disposition home or self-care (01) ==
PROVIDERS: Emergency Provider Emergency Medicine; PCP Internal Medicine
DX: R18.8 Other ascites (principal); K74.60 Unspecified cirrhosis of liver; Z87.891 Personal history of nicotine dependence
CPT/HCPCS: 71045; 74177; 80053; 80500; 81003; 83690; 85025; 85610; 86140; 89050; 96374; 96375; 99284; J2270; J2405; Q9967

== ENCOUNTER → 2021-06-04 11:20 | Outpatient (BNVA) | payer MEDICAID, SELFPAY | PROVIDERS: PCP Internal Medicine; Visit Provider Internal Medicine | DX: R18.8 Other ascites (principal) | CPT/HCPCS: 82140 ==

== ENCOUNTER 2021-06-11 08:28 | Inpatient (IN) | payer MEDICAID, SELFPAY ==
[2021-06-11] VITALS (21 sets, daily range): BP systolic 97–135; BP diastolic 66–91; PULSE 77–100; RESP 16–26; TEMP 36.8–37.1; O2SAT 92–100
--- NOTE | 2021-06-11 08:28 | ED_ITS ---
HPI - Abdominal Pain General: Chief Complaint: Abdominal Pain Stated Complaint: SEVERE ABDOMINAL PAIN Time Seen by Provider: 06/11/21 08:28 History of Present Illness: HPI narrative: Ms. Salmeron is a 61-year-old lady with significant past medical history of end-stage liver disease who presents to the emergency department due to abdominal pain. She has a peritoneal drain in place which she is supposed to use nightly, she fell asleep early last night and said did not use that however has been compliant with it previously. She awoke this morning with generalized severe abdominal pain. Symptoms are worse with movement but do not go with rest. She has associated mild shortness of breath. She reports similar symptoms is in the past but never this bad. No other specific changes in health, exacerbating, or relieving factors. She has been compliant with her medication regimen. Review of Systems General: Reports: 10 or more systems reviewed and unremarkable except in HPI and below Narrative: CONSTITUTIONAL: denies fever, fatigue, weakness EYES - denies pain, denies loss of vision EARS - denies ear issues. NOSE - denies congestion or rhinorrhea. THROAT - denies sore throat or difficulty swallowing. CARDIOVASCULAR - denies chest pain and palpitations RESPIRATORY -see HPI GASTROINTESTINAL -see HPI GENITOURINARY - denies dysuria or urinary frequency MUSCULOSKELETAL- denies deformity or pain SKIN - denies rashes or new changed skin lesions NEUROLOGIC - denies focal weakness or sensory changes HEMATOLOGIC/LYMPHATIC -positive for easy bruising. Denies lymphadenopathy. [facility] ED PFSH: Medical History Ascites Cirrhosis Esophageal varices Hepatitis C Surgical History H/O esophagogastroduodenoscopy History of appendectomy open-1985 History of arthroscopic knee surgery bilateral 2003 History of cholecystectomy lap-2010 History of colonoscopy History of foot surgery rt foot second toe History of shoulder surgery left History of thyroidectomy, total History of total hysterectomy 2011 History of total knee replacement 2002 S/P abdominal paracentesis Status post surgery (05/15/21) Peritoneal catheter for ascites Social History Smoking and tobacco status: current every day smoker Alcohol intake: former Adopted: No Marital status: Number of children: 2 service: No History of recent travel: No Physical Exam Narrative: EXAM NARRATIVE: GENERAL/CONSTITUTIONAL -ill-appearing. Mild distress due to pain. Eyes - PERRL, no conjunctival injection ENMT - Atraumatic external nose and ears. Moist mucous membranes NECK - supple. trachea midline CARDIOVASCULAR - regular rate and rhythm. 1+ bilateral pitting edema in the lower extremities. RESPIRATORY -clear to auscultation bilaterally. No retractions or accessory muscle use. ABDOMEN/GI - distended with generalized areas of tenderness to mild palpation. Mild tenderness to percussion. No evidence of acute surgical abdomen. MSK - Extremities without obvious deformity or tenderness to palpation SKIN - Warm, Dry NEURO - alert and appropriately oriented. strength and sensation intact. Moves all extremities equally. PSYCH - Appropriate mood and affect Course ED course: - Patient was seen and evaluated by me at bedside - Patient placed on cardiac monitors, IV access obtained - Initial evaluation notable for ill appearance, distended tender abdomen with fluid wave appreciated. -Symptom treatment ordered - Labs notable for no leukocytosis but inflammatory markers are elevated. Peritoneal fluid analysis consistent with bacterial infection - Imaging notable for chronic changes related to cirrhosis. Radiology commented on possible blood products in the stomach. Patient has not had hematemesis and denies changes in stool, she does have a history of GI bleed and so is familiar with stool changes associated with this - Antibiotics given. Broader spectrum antibiotics given due to presence of drain. - Upon serial reexamination after treatment the patient was improved - Based on patient history, evaluation, labs, and imaging as interpreted the most likely cause of the patient's condition is bacterial peritonitis with infected ascitic fluid - The results of ED evaluation were discussed with the patient including plan for admission due to requirement for level of care not available if discharged to prevent significant worsening/deterioration. - Initially we had to attempt to transfer the patient due to bed availability however a bed became available and hospitalist service was contacted and agreed to admit the patient. - At the request of admitting team contacted general surgery electronics instructor however he does not perform peritoneal drains and referred back to original performing surgeon for question regarding need to remove/replace drain. - Patient was admitted without further deterioration or significant events. Vital Signs: Vital signs: Vital Signs Temperature 98.6 F 06/12/21 11:33 Pulse Rate 105 H 06/12/21 11:33 Respiratory Rate 18 06/12/21 11:33 Blood Pressure 109/65 06/12/21 11:33 Pulse Oximetry 97 06/12/21 11:33 MDM - Abdominal Pain Medical Records: Attestation: I reviewed the patient's medical records. Lab Data: Attestation: I reviewed the patient's lab results. Labs: Lab Results 06/11/21 06/11/21 06/11/21 Range/Units 09:44 09:44 09:44 WBC 4.8 (4.0-10.0) 10^3/ uL RBC 3.72 L (4.1-5.3) 10^6/u L Hgb 10.1 L (11.5-15.3) g/dL Hct 32.3 L (37.0-47.0) % MCV 86.8 (81-99) fl MCH 27.2 L (28.0-34.0) pg MCHC 31.3 (30.0-36.0) g/dL RDW 17.5 H (12.1-15.1) % Plt Count 134 (130-400) 10^3/c mm MPV 10.0 (7.4-10.4) fL Neut % (Auto) 85.5 % Lymph % (Auto) 3.3 % Morris % (Auto) 8.5 % Eos % (Auto) 1.7 % Baso % (Auto) 0.6 % Neut # (Auto) 4.12 (1.8-7.7) 10^3/u L Lymph # (Auto) 0.2 L (0.8-4.8) 10^3/u L Morris # (Auto) 0.4 (0.2-0.9) 10^3/u L Eos # (Auto) 0.1 (0.0-0.8) 10^3/u L Baso # (Auto) 0.0 (0.0-0.1) 10^3/u L Nucleated RBC % (a uto) 0 % Nucleated RBCs # 0.0 /100WBC ESR 18 H (0-15) mm/hr Sodium 131 L (136-145) mmol/L Potassium 3.8 (3.5-5.1) mmol/L Chloride 103 (98-107) mmol/L Carbon Dioxide 22 (22-29) mmol/L Anion Gap 9.8 (5-19) BUN 12 (8-23) mg/dL Creatinine 0.5 (0.5-0.9) mg/dL GFR Calculation 125.0 (90-130) mL/min Glucose 121 H (65-115) mg/dL Calculated Osmolal ity 273 L (285-295) mOsm/k g Lactate (0.5-2.2) mmol/L Calcium 7.5 L (8.5-10.5) mg/dL Total Bilirubin 0.6 (0.15-1.2) mg/dL AST 56 H (0-32) U/L ALT 38 H (0-33) U/L Alkaline Phosphata se 167 H (35-105) IU/L C-Reactive Protein 22.8 H (0.0-4.9) mg/L Total Protein 5.2 L (6.6-8.7) g/dL Albumin 2.6 L (3.5-5.2) g/dL Globulin 2.6 (1.3-4.6) g/dL Lipase 77 H (13-60) U/L Urine Color (Yellow) Urine Appearance (CLEAR) Urine pH (5-7) Ur Specific Gravit y (1.005-1.030) Urine Protein (Negative) Urine Glucose (UA) (Normal) Urine Ketones (Negative) Urine Blood (Negative) Urine Nitrate (Negative) Urine Bilirubin (Negative) Urine Urobilinogen (Negative) mg/dL Ur Leukocyte Jennifer ase (Negative) Peritoneal Color (Pale Yellow) Peritoneal Appeara nce (Clear) Peritoneal pH Peritoneal WBC /uL Peritoneal RBC 10^3/uL Periton Mononu # A uto 10^3/uL Mononuclear WBCs % % Polynuclear WBCs % % Perit Polynuc WBCs # 10^3/uL Peritoneal Diff Co mmnt Peritoneal Tot Pro tein g/dL Peritoneal Albumin g/dL Peritoneal LDH U/L Peritoneal Glucose mg/dL SARS-CoV-2 Ag (Rap id) (Negative) 06/11/21 06/11/21 06/11/21 Range/Units 09:44 09:44 09:44 WBC (4.0-10.0) 10^3/ uL RBC (4.1-5.3) 10^6/u L Hgb (11.5-15.3) g/dL Hct (37.0-47.0) % MCV (81-99) fl MCH (28.0-34.0) pg MCHC (30.0-36.0) g/dL RDW (12.1-15.1) % Plt Count (130-400) 10^3/c mm MPV (7.4-10.4) fL Neut % (Auto) % Lymph % (Auto) % Morris % (Auto) % Eos % (Auto) % Baso % (Auto) % Neut # (Auto) (1.8-7.7) 10^3/u L Lymph # (Auto) (0.8-4.8) 10^3/u L Morris # (Auto) (0.2-0.9) 10^3/u L Eos # (Auto) (0.0-0.8) 10^3/u L Baso # (Auto) (0.0-0.1) 10^3/u L Nucleated RBC % (a uto) % Nucleated RBCs # /100WBC ESR (0-15) mm/hr Sodium (136-145) mmol/L Potassium (3.5-5.1) mmol/L Chloride (98-107) mmol/L Carbon Dioxide (22-29) mmol/L Anion Gap (5-19) BUN (8-23) mg/dL Creatinine (0.5-0.9) mg/dL GFR Calculation (90-130) mL/min Glucose (65-115) mg/dL Calculated Osmolal ity (285-295) mOsm/k g Lactate (0.5-2.2) mmol/L Calcium (8.5-10.5) mg/dL Total Bilirubin (0.15-1.2) mg/dL AST (0-32) U/L ALT (0-33) U/L Alkaline Phosphata se (35-105) IU/L C-Reactive Protein (0.0-4.9) mg/L Total Protein (6.6-8.7) g/dL Albumin (3.5-5.2) g/dL Globulin (1.3-4.6) g/dL Lipase (13-60) U/L Urine Color (Yellow) Urine Appearance (CLEAR) Urine pH (5-7) Ur Specific Gravit y (1.005-1.030) Urine Protein (Negative) Urine Glucose (UA) (Normal) Urine Ketones (Negative) Urine Blood (Negative) Urine Nitrate (Negative) Urine Bilirubin (Negative) Urine Urobilinogen (Negative) mg/dL Ur Leukocyte Jennifer ase (Negative) Peritoneal Color Yellow (Pale Yellow) Peritoneal Appeara nce Cloudy (Clear) Peritoneal pH 8.0 Peritoneal WBC 9265 /uL Peritoneal RBC 0 10^3/uL Periton Mononu # A uto 1.490 10^3/uL Mononuclear WBCs % 16.100 % Polynuclear WBCs % 83.900 % Perit Polynuc WBCs # 7.775 10^3/uL Peritoneal Diff Co mmnt Yes Peritoneal Tot Pro tein 0.6 g/dL Peritoneal Albumin 0.4 g/dL Peritoneal LDH 59.0 U/L Peritoneal Glucose 77.0 mg/dL SARS-CoV-2 Ag (Rap id) (Negative) 06/11/21 06/11/21 06/11/21 Range/Units 09:44 09:51 13:32 WBC (4.0-10.0) 10^3/ uL RBC (4.1-5.3) 10^6/u L Hgb (11.5-15.3) g/dL Hct (37.0-47.0) % MCV (81-99) fl MCH (28.0-34.0) pg MCHC (30.0-36.0) g/dL RDW (12.1-15.1) % Plt Count (130-400) 10^3/c mm MPV (7.4-10.4) fL Neut % (Auto) % Lymph % (Auto) % Morris % (Auto) % Eos % (Auto) % Baso % (Auto) % Neut # (Auto) (1.8-7.7) 10^3/u L Lymph # (Auto) (0.8-4.8) 10^3/u L Morris # (Auto) (0.2-0.9) 10^3/u L Eos # (Auto) (0.0-0.8) 10^3/u L Baso # (Auto) (0.0-0.1) 10^3/u L Nucleated RBC % (a uto) % Nucleated RBCs # /100WBC ESR (0-15) mm/hr Sodium (136-145) mmol/L Potassium (3.5-5.1) mmol/L Chloride (98-107) mmol/L Carbon Dioxide (22-29) mmol/L Anion Gap (5-19) BUN (8-23) mg/dL Creatinine (0.5-0.9) mg/dL GFR Calculation (90-130) mL/min Glucose (65-115) mg/dL Calculated Osmolal ity (285-295) mOsm/k g Lactate 1.0 (0.5-2.2) mmol/L Calcium (8.5-10.5) mg/dL Total Bilirubin (0.15-1.2) mg/dL AST (0-32) U/L ALT (0-33) U/L Alkaline Phosphata se (35-105) IU/L C-Reactive Protein (0.0-4.9) mg/L Total Protein (6.6-8.7) g/dL Albumin (3.5-5.2) g/dL Globulin (1.3-4.6) g/dL Lipase (13-60) U/L Urine Color Yellow (Yellow) Urine Appearance Clear (CLEAR) Urine pH 6.5 (5-7) Ur Specific Gravit y 1.005 (1.005-1.030) Urine Protein Neg (Negative) Urine Glucose (UA) Norm (Normal) Urine Ketones Negative (Negative) Urine Blood Neg (Negative) Urine Nitrate Negative (Negative) Urine Bilirubin Neg (Negative) Urine Urobilinogen 1 H (Negative) mg/dL Ur Leukocyte Jennifer ase Negative (Negative) Peritoneal Color (Pale Yellow) Peritoneal Appeara nce (Clear) Peritoneal pH Peritoneal WBC /uL Peritoneal RBC 10^3/uL Periton Mononu # A uto 10^3/uL Mononuclear WBCs % % Polynuclear WBCs % % Perit Polynuc WBCs # 10^3/uL Peritoneal Diff Co mmnt Peritoneal Tot Pro tein g/dL Peritoneal Albumin g/dL Peritoneal LDH U/L Peritoneal Glucose mg/dL SARS-CoV-2 Ag (Rap id) Negative (Negative) Discharge Plan Discharge Admit Provider: Evans White Coding Level of Care Code ED Photographic Equipment Inspector for Holly Her
--- NOTE | 2021-06-11 08:36 | CT_ITS ---
WS: [id number] CT ABDOMEN PELVIS TECHNIQUE: Contrast-enhanced CT of the abdomen and pelvis with coronal and sagittal reformatted image s. CLINICAL INFORMATION: abdominal pain, ESLD COMPARISON: May 26, 2021 DLP: 1789.[address] scans at [facility] use at least one of these dose optimization techniques: automated e xposure control; mA and/or kV adjustment per patient size (includes targeted exams where dose is matc hed to clinical indication); or iterative reconstruction. FINDINGS: Cirrhotic liver. Portal vein and splenic vein are patent. Splenomegaly. Upper abdominal varices. Para esophageal varices. Moderate abdominal and pelvic ascites unchanged from November 24, 2020. Diffuse body wall anasarca. Abdominal catheter in the right lower quadrant. Lung bases are well aerated. Fatty atrophy of the pancreas. Prior cholecystectomy and hysterectomy. A drenal glands are normal. Normal renal parenchymal enhancement. No hydronephrosis. Normal caliber abd ominal aorta. Scattered stool in the colon. No evidence of high-grade small or large bowel obstructio n. Fluid distended stomach with air-fluid levels.Increased attenuation in the stomach may represent b lood products. Fat-containing umbilical hernia. Lumbar curve. CT/CT abdomen pelvis w con* [id number] IMPRESSION: 1. Markedly cirrhotic liver with splenomegaly. 2. Abdominal and periesophageal varices. 3. Moderate abdominal ascites and body wall anasarca unchanged. 4. Drainage catheter right lower quadrant is stable. 5. Fluid distended stomach with air-fluid level. Fat-containing umbilical mehnaz ia. 6. Increased attenuation in the stomach may represent blood products. Recommen d correlation for bloody emesis 7. No other significant changes from previous. Notified Win Perez MD at 06/11/2021 9:43 AM.
--- NOTE | 2021-06-11 08:36 | XRR_ITS ---
PROCEDURE INFORMATION: Exam: XR Chest Exam date and time: 06/11/2021 8:36 AM Age: 61 years old Clinical indication: Shortness of breath; Additional info: SOB TECHNIQUE: Imaging protocol: XR of the chest. Views: 1 view. Total images: 1 COMPARISON: CR (CHEST, ) 05/26/2021 10:08 PM FINDINGS: Tubes, catheters and devices: Multiple surgical clips are present lower anterior neck. Lungs: Unremarkable. No consolidation. Pleural spaces: Unremarkable. No pleural effusion. No pneumothorax. Heart/Mediastinum: Unremarkable. No cardiomegaly. Bones/joints: Osseous structures are unchanged from the prior exam. Other findings: X-ray is slightly rotated. XR/XR chest 1V portable [id number] IMPRESSION: No acute cardiopulmonary process.
[2021-06-11] MEDS: morphine 4 mg/mL SDV 1 mL IVP ×4 (08:54→19:18)
[2021-06-11] MEDS: iohexol 300 mg/mL 100 mL Btl IV (09:07)
--- NOTE | 2021-06-11 09:28 | PC.PHAR ---
PT WAS ABLE TO CONFIRM HER MEDICATIONS AND THE TIMES THAT SHE TAKES THEM. I TRIED MULTIPLE TIMES TO REACH [facility], BUT WAS UNABLE TO REACH ANYONE. I WILL KEEP TRYING TO GET A PHARMACY LIST.
[2021-06-11 09:58] LABS: Basophils % 0.6 %; Eosinophils # 0.1 10^3/uL (0.0-0.8); Eosinophils % 1.7 %; Hematocrit 32.3 % (37.0-47.0); Hemoglobin 10.1 g/dL (11.5-15.3); Lymphocytes # 0.2 10^3/uL (0.8-4.8); Lymphocytes % 3.3 %; Mean Corpuscular HGB Conc 31.3 g/dL (30.0-36.0); Mean Corpuscular Hemoglobin 27.2 pg (28.0-34.0); Mean Corpuscular Volume 86.8 fl (81-99); Monocytes # 0.4 10^3/uL (0.2-0.9); Monocytes % 8.5 %; Neutrophils # 4.12 10^3/uL (1.8-7.7); Neutrophils % 85.5 %; Nucleated Red Blood Cells % 0 %; Platelet Count 134 10^3/cmm (130-400); Red Blood Count 3.72 10^6/uL (4.1-5.3); Red Cell Distribution Width 17.5 % (12.1-15.1); White Blood Count 4.8 10^3/uL (4.0-10.0)
[2021-06-11 10:10] LABS: Add Urine Microscopic? NO; Charge for UA Resulting for Rev
[2021-06-11 10:11] LABS: Alanine Aminotransferase 38 U/L (0-33); Albumin Level 2.6 g/dL (3.5-5.2); Alkaline Phosphatase 167 IU/L (35-105); Anion Gap 9.8 (5-19); Aspartate Amino Transferase 56 U/L (0-32); Blood Urea Nitrogen 12 mg/dL (8-23); C Reactive Protein 22.8 mg/L (0.0-4.9); Calcium 7.5 mg/dL (8.5-10.5); Carbon Dioxide 22 mmol/L (22-29); Chloride 103 mmol/L (98-107); Globulin 2.6 g/dL (1.3-4.6); Glucose 121 mg/dL (65-115); Lipase 77 U/L (13-60); Osmolality Calculated 273 mOsm/kg (285-295); Potassium 3.8 mmol/L (3.5-5.1); Sodium 131 mmol/L (136-145); Total Bilirubin 0.6 mg/dL (0.15-1.2); Total Protein 5.2 g/dL (6.6-8.7)
[2021-06-11 10:17] LABS: Bilirubin Urine Neg (Negative); Blood Urine Neg (Negative); Glucose Urine UA Norm (Normal); Ketones Urine Negative (Negative); Leukocyte Esterase Urine Negative (Negative); Nitrate Urine Negative (Negative); Protein Urine Neg (Negative); Specific Gravity, Urine 1.005 (1.005-1.030); Urine Appearance Clear (CLEAR); Urine Color Yellow (Yellow); Urobilinogen Urine 1 mg/dL (Negative); pH Urine 6.5 (5-7)
[2021-06-11 10:21] LABS: Polynuclear # Cells, Perit 7.775 10^3/uL
[2021-06-11 10:37] LABS: Appearance, Peritoneal Fluid Cloudy (Clear); Color, Peritoneal Fluid Yellow (Pale Yellow)
[2021-06-11 10:38] LABS: Pathology Referral Yes; RBC Pertioneal Fluid 0 10^3/uL; WBC Peritoneal Fluid 9265 /uL
[2021-06-11 11:02] LABS: Erythrocyte Sedimentation Rate 18 mm/hr (0-15)
[2021-06-11] MEDS: cefepime 2,000 MG in sodium chloride 0.9% (plus) 50 ML 100 MG IV (11:24)
[2021-06-11] MEDS: vancomycin 1,500 MG/300 ML PIGGYBACK 200 MG IV (11:25)
[2021-06-11 12:11] LABS: Total Protein Peritoneal Fluid 0.6 g/dL
[2021-06-11 12:39] LABS: Albumin Peritoneal Fluid 0.4 g/dL
[2021-06-11 14:11] LABS: SARS Covid-2 Antigen Negative (Negative)
--- NOTE | 2021-06-11 15:06 | PC.NURSE ---
Resting with lights off. No acute distress noted. Continue to monitor
--- NOTE | 2021-06-11 15:58 | PC.NURSE ---
Resting wit lights out, laying on left lateral side. Respiration even and unlabored. Continue to monitor
--- NOTE | 2021-06-11 16:52 | PM.HP ---
Providers/Chief Complaint Primary Care Provider: Paulo Taylor MD Chief Complaint: SEVERE ABDOMINAL PAIN History of Present Illness Rae Salmeron is a 61 year old female with history of end-stage liver disease, recently had peritoneal drain placed by Dr. Sloan currently living with her roommate not in touch with the family presented today with chief complaint of nausea, abdominal pain and rigors. Patient is stating that her symptoms started 1-1/2 weeks after placement of peritoneal drain, since then she has been draining 1 to 1.5 L a day, her symptoms gradually got worse which she is describing as nausea, abdominal pain, despite adequate drainage abdominal bloating has not improved and today her abdominal pain has gotten worse thus came to the hospital. She has not taken temperature however endorsing subjective fevers. No active emesis or diarrhea. In the ER she was diagnosed with SBP and given vancomycin and cefepime. Blood pressure stable no leukocytosis. Patient was emotionally labile at the time of my presentation and told me that I should not contact her family other than emergencies she gave me phone number of her Sister Kim [phone] She lives with her roommate, Natalie, she gave me permission to exchange information with her phone number [phone] Review of Systems Const: Reports: chills, body aches, change in weight and fatigue Eyes: Denies: change in vision ENMT: Denies: throat pain Card: Denies: chest pain Resp: Reports: dyspnea GI: Reports: abdominal pain, nausea, heartburn, early satiety, constipation, bloating and belching : Denies: flank pain Musc: Denies: neck pain Skin/Breast: Reports: sores Neuro: Denies: headache(s) Psych: Reports: anxiety and depression Endo: Denies: polyuria Lazarus/Lymph: Denies: easy bruising All/Imm: Denies: urticaria Medications/Allergies Home Medications Medication Instructions Recorded Confirmed Last Taken Type furosemide 40 mg PO DAILY@1200 04/11/21 06/11/21 06/10/21 History levothyroxine 175 mcg PO DAILY@0900 04/11/21 06/11/21 06/10/21 History Xifaxan 550 mg PO BID@1200,0000 05/10/21 06/11/21 06/11/21 00:00 History duloxetine 60 mg PO DAILY@1200 05/10/21 06/11/2106/10/21 History lactulose 20 g PO BID@1200,0000 05/10/21 06/11/21 05/14/21 History mirtazapine 45 mg PO DAILY@0000 05/10/21 06/11/21 06/11/21 00:00 History sertraline [Zoloft] 50 mg PO DAILY@1200 05/10/21 06/11/21 06/10/21 History spironolactone 100 mg PO DAILY@1200 05/10/21 06/11/21 06/10/21 History ondansetron HCl 4 mg tablet 4 mg PO Q6H PRN #20 tab 05/27/21 06/11/21 06/10/21 Rx oxycodone 10 mg tablet 10 mg PO BID PRN 14 Days #20 tab 06/04/21 06/11/21 06/10/21 Rx Allergies Allergy/AdvReac Type Severity Reaction Status Date / Time amlodipine [From Norvasc] Allergy ALGY-Swell Verified 06/11/21 08:38 Lip/Tongue/Throat ciprofloxacin [From Cipro] Allergy ADR-Vomitin Verified 06/11/21 08:38 g ergotamine Allergy Unknown Verified 06/11/21 08:38 erythromycin base Allergy ADR-Dry Verified 06/11/21 08:38 Mucus Membranes Influenza Virus Vaccines Allergy ALGY-Bliste Verified 06/11/21 08:38 r naproxen [From Naprosyn] Allergy ADR-Loss Verified 06/11/21 08:38 of Appetite Sulfa (Sulfonamide Allergy ADR-Vomitin Verified 06/11/21 08:38 Antibiotics) g PFSH Acute PFSH: Medical History Ascites Cirrhosis Esophageal varices Hepatitis C Surgical History H/O esophagogastroduodenoscopy History of appendectomy open-1985 History of arthroscopic knee surgery bilateral 2002 History of cholecystectomy lap-2010 History of colonoscopy History of foot surgery rt foot second toe History of shoulder surgery left History of thyroidectomy, total History of total hysterectomy 2010 History of total knee replacement 2002 S/P abdominal paracentesis Status post surgery (05/15/21) Peritoneal catheter for ascites Social History Smoking and tobacco status: current every day smoker Alcohol intake: former Adopted: No Marital status: Number of children: 2 service: No History of recent travel: No Vitals/I&O/Wt Last Vital Signs Temp 98.8 F 06/11/21 08:39 Pulse 92 06/11/21 15:58 Resp 19 H 06/11/21 15:58 BP 122/77 06/11/21 15:58 Pulse Ox 92 06/11/21 15:58 06/11/21 06/11/21 06/11/21 06:59 14:59 22:59 Intake Total 350 / 350 Balance 350 / 350 Weight last 48 hrs Weight 72.575 kg Physical Exam Narrative: EXAM NARRATIVE: Appears more than stated age, female Malnourished Abdominal bloated, tender to superficial and deep palpation Umbilical hernia, right-sided peritoneal drain no active drainage or sign of cellulitis around the drain Awake alert no active signs of hepatic encephalopathy S1, S2 Bilateral breath sounds no adventitious rhonchi or crackles No neurological deficits Lower extremity venous stasis dermatitis Data : 06/11/21 09:44 06/11/21 09:44 Micro: Microbiology 06/11/21 14:43 Blood Culture - Preliminary Blood SPECIMEN COLLECTED 06/11/21 09:44 Blood Culture - Preliminary Blood SPECIMEN COLLECTED 06/11/21 09:44 Gram Stain - Final Peritoneal Fluid A&P Assessment and plan (1) SBP (spontaneous bacterial peritonitis): Status: Acute (2) Ascites: Status: Acute Qualifiers: Ascites type: other type Qualified Code(s): R18.8 - Other ascites (3) Fluid retention: Status: Acute (4) End stage liver disease: Status: Acute (5) Chronic pain: Status: Acute Additional A&P Information SBP Tender abdomen, no leukocytosis or fever Neutrophils percentage criteria meet for SBP Start her on vancomycin and Zosyn because of peritoneal drain placement in May I will cover her for MRSA as well will update Dr. Sloan in the morning Dr. Li advised to contact Dr. Sloan No acute decompensation of underlying end-stage liver disease no active hepatic encephalopathy Continue lactulose, rifaximin Lasix and spironolactone Monitor for hepatic encephalopathy and renal dysfunction which associated with higher mortality morbidity Patient does not want me to contact her sister Kim, she allowed me to contact her in case of an emergency, she given permission to share information with her roommate Crystal Recurrent ascites with underlying end-stage liver disease Patient has history of hepatitis C Was draining 1 to 1.5 L via peritoneal drain every day I will give her 1 dose of albumin For pain management Dilaudid Cardiac diet DVT prophylaxis use SCDs avoid Lovenox in anticipation of removal of peritoneal drain Guarded prognosis Contact info of roommate and Sister Kim in my HPI Patient is stating that she does not have any other family member in close contact Goals of care discussed with the patient she is adamant that she would not like any chest compressions or intubation she understood the concept of resuscitation mechanical ventilator and would like to pursue comfort measures in case of cardiac arrest Attestations Medical Necessity Statement*: Stay in the hospital to cross more than 2 midnights Time Spent in Patient Care: Greater than 35 minutes Coding Level of Care Code Acute Motorboat Operator for Chg Fwd Diagnoses SBP (spontaneous bacterial peritonitis) K65.2 Ascites R18.8 Ascites type: other type Fluid retention R60.9 End stage liver disease K72.90 Chronic pain G89.29
--- NOTE | 2021-06-11 17:08 | PC.NURSE ---
No acute distress. Requesting pain meds. Gave water .
[2021-06-11] MEDS: HYDROmorphone 1 mg/mL INJ 1 mL IVP ×3 (19:50→23:57)
--- NOTE | 2021-06-11 20:26 | PC.NURSE ---
Patient arrived from ED. Left patient alone for ~2min and found patient to be smoking in the bathroom. Instructed patient that was not allowed. She is cooperative at this time.
--- NOTE | 2021-06-11 20:31 | PC.NURSE ---
Arrived to [facility] at this time. Requesting pain medication. Patient received 1mg Dilaudid in the ED prior to arrival however 1/2 of it went into an infiltrated line to her foot. The other 1/2 was received to new IV site to right forearm per TONNY Mccoy in the ED. Also, patient up to bathroom and was found smoking. Instructed patient on smoking policies. Informed Dr Calderon of patient's pain and smoking. Requested Nicotine patch. Waiting for orders at this time.
[2021-06-11] MEDS: nicotine 21 mg Patch 1 PATCH TRANSDERMA (20:46)
[2021-06-11] MEDS: albumin 12.5 GM/250 ML VIAL IV (20:48)
--- NOTE | 2021-06-11 20:51 | PC.PHAR ---
Pharmacokinetic dosing service Date: 06/11/21 Time: 2100 Objective: Patient: Rae Salmeron Floor: 101-1 Age: 61 yo Serum creatinine: 0.5 mg/dL Height: 67.0 Inches Weight (kg): 72.575 Diagnosis: Relevant medical/social history: Cultures and sensitivities: Other labs: Assessment: IBW (kg): 61.60 Dosing wt(kg): 72.575 Estimated Creatinine clearance (ml/min): 113.4 CRCL method: Cockcroft and Gault using ibw(default). Drug selected: Vancomycin Loading dose (mg): 0 Vd (liters): 65.3 (factor used: 0.9 L/kg) J Carlos (hr-1): 0.099 Half life (hrs): 7.00 Recommended dose: 1000 mg Interval: 8 hrs Infusion time (hrs): 1.5 Predicted peak (mcg/mL): 26.0 Predicted trough (mcg/mL): 13.66 Total body weight is being used for vancomycin dosing. Renal function is stable [ ] /unstable [ ] Recommendations: Give Vancomycin 1000 mg q 8 hrs with an expected Cpeak of 26.0 mcg/ml and an expected Ctrough of 13.66 mcg/ml Renal dosing of other antibiotics (review renal dosing of other medications and list guidelines here): Thank you for the consult, will continue to follow. Signature: Berna Renteria [facility]
[2021-06-11] MEDS: piperacillin-tazobactam 3.375 GM in sodium chloride 0.9% (plus) 50 ML IV (20:58)
--- NOTE | 2021-06-11 21:48 | PC.NURSE ---
Admit Note Patient admitted to 101 from ED via wheelchair. Covering service notified. Patient presents with severe abdominal pain over past several weeks . Orders reviewed & will continue to monitor. Patient and/or premium representative oriented to environment, equipment, and informed of the following as found in the admission booklet: patient rights & responsibilities, visitor policy, hand and respiratory hygiene practice. Other education includes: No smoking policies and Nicotine patch. Patient was up to bathroom and was found to be smoking as documented earlier. Dr Calderon was notified and received order for Nicotine Patch 21mg which was placed to left shoulder. Patient verbalized complete understanding and thanks. Medications given as ordered. Instructed patient on pain control as well and to this also verbalized complete understanding.
[2021-06-11] MEDS: vancomycin 1,000 MG in sodium chloride 0.9% 250 ML 250 MG IV (22:11)
[2021-06-11] MEDS: lactulose oral liq 20 gm/30 mL UDC PO (23:56)
[2021-06-12] VITALS (11 sets, daily range): BP systolic 109–128; BP diastolic 55–84; PULSE 87–105; RESP 16–27; TEMP 36.6–37; O2SAT 94–100
[2021-06-12] MEDS: HYDROmorphone 1 mg/mL INJ 1 mL IVP ×6 (02:22→21:37)
[2021-06-12 03:45] LABS: Basophils % 0.3 %; Eosinophils # 0.1 10^3/uL (0.0-0.8); Hematocrit 28.3 % (37.0-47.0); Hemoglobin 8.7 g/dL (11.5-15.3); Lymphocytes # 0.3 10^3/uL (0.8-4.8); Lymphocytes % 3.6 %; Mean Corpuscular HGB Conc 30.7 g/dL (30.0-36.0); Mean Corpuscular Volume 87.9 fl (81-99); Mean Platelet Volume 10.3 fL (7.4-10.4); Monocytes % 13.7 %; Neutrophils # 5.93 10^3/uL (1.8-7.7); Nucleated Red Blood Cells % 0 %; Platelet Count 130 10^3/cmm (130-400); Red Blood Count 3.22 10^6/uL (4.1-5.3); Red Cell Distribution Width 17.2 % (12.1-15.1); White Blood Count 7.3 10^3/uL (4.0-10.0)
[2021-06-12] MEDS: vancomycin 1,000 MG in sodium chloride 0.9% 250 ML 250 MG IV ×3 (03:46→21:31)
[2021-06-12 04:03] LABS: Alanine Aminotransferase 33 U/L (0-33); Albumin Level 2.7 g/dL (3.5-5.2); Alkaline Phosphatase 139 IU/L (35-105); Anion Gap 14.2 (5-19); Aspartate Amino Transferase 39 U/L (0-32); Blood Urea Nitrogen 10 mg/dL (8-23); Calcium 7.9 mg/dL (8.5-10.5); Carbon Dioxide 20 mmol/L (22-29); Chloride 101 mmol/L (98-107); Globulin 2.9 g/dL (1.3-4.6); Glomerular Filtration Rate 101.3 mL/min (90-130); Glucose 126 mg/dL (65-115); Magnesium 1.8 mg/dL (1.7-2.3); Osmolality Calculated 273 mOsm/kg (285-295); Potassium 4.2 mmol/L (3.5-5.1); Sodium 131 mmol/L (136-145); Total Bilirubin 1.1 mg/dL (0.15-1.2); Total Protein 5.6 g/dL (6.6-8.7)
--- NOTE | 2021-06-12 05:22 | PC.NURSE ---
Patient to transfer to [facility] from [facility]. Report called to TONNY Jimenez.
--- NOTE | 2021-06-12 05:44 | PC.NURSE ---
Patient arrived to [facility] unit at 0540 on 06/12/2021. Patient has complaints of generalized pain and weakness.
[2021-06-12] MEDS: piperacillin-tazobactam 3.375 GM in sodium chloride 0.9% (plus) 50 ML IV ×3 (05:47→19:38)
--- NOTE | 2021-06-12 09:38 | PC.CHAP ---
Pastoral Care Encounter/Spiritual Assessment Type of Contact [] Declined electric locomotive firer/fireman visit [] Patient/Family/Request visit [] Outpatient visit [] Follow-up visit [] Physician referral [] Code/Alert [] Routine visit [] Staff referral [] Actively dying [] Patient sleeping [] Family support [] [] Out of room [] Palliative care [] [] Receiving care in room [] Pre-surgical visit [] Trauma [] Long length of stay [] ICU visit [] Other: Relational/Emotional Strength [] Patient feels connected with others/family/visitors/staff [] Distress [] Loneliness/isolation [] Abandonment Spirituality of Patient [x] Person of [place] [] Attends Protestant of their [place] [x] Believes in Prayer [] Reads Bible or Taoist materials [] There are Spiritual issues to be addressed Assistant Infant Teacher Interventions [x] Prayer x] Active listening [x]x Non-anxious presence [x] Spiritual/emotional support [] Crisis/trauma care [] Spiritual counseling [] Bereavement support [] Provided bereavement packet [] Provided Bible/devotional materials [] Provided toy/stuffed animal, coloring book to patient or family member [] Provided Communion [] Anointing/Wright [] Salvation [x] Completed spiritual assessment [] Other: Impact on Illness or Injury [] Angry [x] Fearful [] Anxious [] Often cries [] Exhaustion [] Unable to work [] Unable to attend mosque [] Unable to walk/stand [] Unable to read [] Unable to drive [] Unable to eat/drink [] Unable to sleep [] Unable to be with family [] Patient intubated [] Other: Summary talked to nurse patient needs some support ask for socal worker to be notified Time spent with patient 15 min
[2021-06-12] MEDS: levothyroxine 175 mcg Tablet PO (09:56)
[2021-06-12] MEDS: nicotine 21 mg Patch 1 PATCH TRANSDERMA (09:56)
[2021-06-12] MEDS: spironolactone 25 mg Tablet 100 MG PO (12:36)
[2021-06-12] MEDS: FUROsemide 40 mg Tablet PO (12:36)
[2021-06-12] MEDS: duloxetine 60 mg Capsule PO (12:36)
[2021-06-12] MEDS: lactulose oral liq 20 gm/30 mL UDC PO ×2 (12:38→23:34)
--- NOTE | 2021-06-12 13:39 | P.PN_ITS ---
Subjective Subjective: Interval history: Overnight no fever no leukocytosis, patient is stating that with albumin her abdominal pain improved, she drained 3 L via her peritoneal drain endorsed that color has changed to turbid yellow We discussed that we would like to keep peritoneal drain in place until we see the results of blood culture as she would like to avoid taking out the peritoneal drain because of recurrent ascites She is endorsing suicidal and homicidal ideation requested one-to-one sitter and psych consult Dr. Low notified Complaining of pain 6/10 slightly better than yesterday Still no bowel movement Complaining of cramps in her right leg Vitals/I&O/Wt Last Vital Signs Temp 98.6 F 06/12/21 11:33 Pulse 105 H 06/12/21 11:33 Resp 18 06/12/21 11:33 BP 109/65 06/12/21 11:33 Pulse Ox 97 06/12/21 11:33 06/11/21 06/12/21 06/12/21 22:59 06:59 14:59 Intake Total 490 / 840 650 / 1490 1850 / 1850 Output Total 500 / 500 Balance 490 / 840 650 / 1490 1350 / 1350 Weight last 48 hrs Weight 72.575 kg Physical Exam Narrative: EXAM NARRATIVE: Patient was sitting in her bed Saturating well on room air Abdomen is distended slightly tender to deep palpation umbilical hernia noted Bowel sounds sluggish S1, S2 Bilateral diminished breath sounds EOMI, PERRLA No neurological deficit Grade 1 hepatic encephalopathy signs She is not able to sleep Venous stasis dermatitis, bilateral Data : 06/12/21 03:21 06/12/21 03:21 Micro: Microbiology 06/11/21 09:44 Gram Stain - Final Peritoneal Fluid Body Fluid Culture - Preliminary 06/11/21 14:43 Blood Culture - Preliminary Blood SPECIMEN COLLECTED 06/11/21 09:44 Blood Culture - Preliminary Blood SPECIMEN COLLECTED A&P Assessment and plan (1) Chronic pain: Status: Acute (2) End stage liver disease: Status: Acute (3) Fluid retention: Status: Acute (4) Hepatic encephalopathy: Status: Acute (5) Ascites: Status: Acute Qualifiers: Ascites type: other type Qualified Code(s): R18.8 - Other ascites (6) SBP (spontaneous bacterial peritonitis): Status: Acute Additional A&P Information Secondary bacterial peritonitis status post peritoneal drain placement No fever leukocytosis Currently on broad-spectrum antibiotics Cultures sterile Plan to keep peritoneal drain until we see the results of blood culture No GHULAM, grade 1 hepatic encephalopathy noted No bowel movement since admission, continue rifaximin, lactulose spironolactone and Lasix Opioids for analgesia Suicidal ideation requested one-to-one sitter and psych consult She is taking duloxetine for her peripheral neuropathy which I would continue for now Hypothyroidism: Continue levothyroxine DNR/DNI Cardiac diet DVT prophylaxis Lovenox Attestations Medical Necessity Statement*: Continue medical management Time Spent in Patient Care: 16 - 35 minutes Coding Level of Care Code Acute Portable Machine Sander for Chg Fwd Diagnoses Chronic pain G89.29 End stage liver disease K72.90 Fluid retention R60.9 Hepatic encephalopathy K72.90 Ascites R18.8 Ascites type: other type SBP (spontaneous bacterial peritonitis) K65.2
--- NOTE | 2021-06-12 13:39 | PC.NURSE ---
Addendum entered by Maria E Chacon RN 06/12/21 13:41: Dr. White notified that patient is refusing sitter. he stated that since she is saying that she is not suicidal we can hold off on the sitter until a psych consult is done. Original Note: patient is adamant that she does not need a sitter. she stated that she is not going to kill herself, and doesn't need a sitter.
[2021-06-12 16:41] LABS: Vancomycin Trough 12.3 ug/mL (10-15)
[2021-06-12] MEDS: enoxaparin 40 mg/0.4 mL Syringe SUBCUT (16:44)
--- NOTE | 2021-06-12 18:28 | P.CONIM_ITS ---
Providers/Reason for Consult Consulting Physican/Specialty*: Randall Low MD/psychiatry Reason for Consult*: Depression and suicidal ideation Attending Physician: Evans White MD Primary Care Provider: Paulo Taylor MD Psych Consult HPI History of Present Illness Rae Salmeron is a 61 year old female who is feeling sad and scared if she is facing a terminal illness, liver failure and peritonitis. I spent an hour talking with her about her views of , her fears about the dying process, and her life in general. She has been a very independent woman all of her life, and is considered asking for help to weakness. In fact, she is a very generous soul who often helps others, even sharing her food stamps when she herself is homeless. It is hard for her to imagine that others would do the same for her without feeling unfairly obligated and overburdened. After our conversation, however she is considering asking people who seem quite willing to help, to sit with her and to help her maintain her dignity. Dignity is one of the things she values most highly, and she is afraid she will lose it as she slips into hepatic encephalopathy. We talked about the possibility that she might consult with hospice, as they are people who would get paid to provide her the support she needed through the dying process. She is open to that possibility. The patient has no intentions of harming herself at this point. Meds Current Medications: Current Medications Generic Name Dose Route Start Last Admin Trade Name Freq PRN Reason Stop Dose Admin Duloxetine HCl 60 mg 06/12/21 12:00 06/12/21 12:36 Duloxetine 60 Mg Capsule PO 60 mg DAILY@1200 YOSELIN Administration Enoxaparin Sodium 40 mg 06/12/21 14:00 06/12/21 16:44 Enoxaparin 40 Mg /0.4 Ml Syringe SUBCUT 40 mg Q24H YOSELIN Administration Furosemide 40 mg 06/12/21 12:00 06/12/21 12:36 Furosemide 40 Mg Tablet PO 40 mg DAILY@1200 YOSELIN Administration Hydromorphone HCl 1 mg 06/11/21 19:30 06/13/21 08:57 Hydromorphone 1 Mg/Ml Inj 1 Ml IVP 1 mg Q2H PRN Administration Abdominal pain Piperacillin Sod/T azobactam 50 mls @ 12.5 mls /hr 06/11/21 20:00 06/13/21 09:34 Sod 3.375 gm/ So dium Chloride IV Infused Q8H YOSELIN Infusion Vancomycin HCl 1,0 00 mg/ 250 mls @ 250 mls /hr 06/11/21 21:00 06/13/21 06:23 Sodium Chloride IV Infused Q8H YOSELIN Infusion Lactulose 20 gm 06/12/21 00:00 06/12/21 23:34 Lactulose Oral L iq 20 Gm/30 Ml Udc PO 20 gm BID@1200,0000 YOSELIN Administration Levothyroxine Sodi um 175 mcg 06/12/21 09:00 06/13/21 08:57 Levothyroxine 17 5 Mcg Tablet PO 175 mcg DAILY@0900 YOSELIN Administration Mirtazapine 7.5 mg 06/12/21 21:00 06/12/21 20:42 Mirtazapine 15 M g Tablet PO 7.5 mg BEDTIME YOSELIN Administration Nicotine 1 patch 06/11/21 20:34 06/13/21 08:57 Nicotine 21 Mg P atch TRANSDERMA 1 patch DAILY YOSELIN Administration Potassium Chloride 20 meq 06/13/21 09:00 06/13/21 08:57 Potassium Chlori de Er 20 Meq Table t PO 20 meq DAILY YOSELIN Administration Rifaximin 550 mg 06/12/21 00:00 06/12/21 23:34 Rifaximin 550 Mg Tablet PO 550 mg BID@1200,0000 YOSELIN Administration Protocol Spironolactone 100 mg 06/12/21 12:00 06/12/21 12:36 Spironolactone 2 5 Mg Tablet PO 100 mg DAILY@1200 YOSELIN Administration PFSH NPU PFSH: Medical History Ascites Cirrhosis Esophageal varices Hepatitis C Surgical History H/O esophagogastroduodenoscopy History of appendectomy open-1985 History of arthroscopic knee surgery bilateral 2002 History of cholecystectomy lap-2010 History of colonoscopy History of foot surgery rt foot second toe History of shoulder surgery left History of thyroidectomy, total History of total hysterectomy 2010 History of total knee replacement 2002 S/P abdominal paracentesis Status post surgery (05/15/21) Peritoneal catheter for ascites Social History Smoking and tobacco status: current every day smoker Alcohol intake: former Adopted: No Marital status: Number of children: 2 service: No History of recent travel: No Mental Status Exam MSE Comments: I met with the patient in her hospital room, and she was dressed in hospital scrubs and appropriately groomed. She was often upset and tearful, but cooperative, interactive, and made good eye contact. Some psychomotor agitation. Speech is at a regular rate and rhythm, normal volume, good articulation, not pressured. Alert, oriented to person, place, time, situation. Attention and concentration were intact to the exam. Memory is adequate for the exam. Mood is sad and anxious. Affect is tearful and anxious. Thought process is logical and goal-directed. Thought content: Denies auditory and visual hallucinations. No delusions or paranoia are noted. No current suicidal ideation, and no homicidal ideation. Fund of knowledge is intact to exam. Language is intact to exam. Insight and judgment appear to be fair. Impulse control is fair as well. Vitals/I&O/Wt Last Vital Signs Temp 97.9 F 06/13/21 08:00 Pulse 82 06/13/21 08:00 Resp 16 06/13/21 08:57 BP 124/74 06/13/21 08:00 Pulse Ox 98 06/13/21 08:00 06/12/21 06/13/21 06/13/21 22:59 06:59 14:59 Intake Total 670 / 2520 316.042 / 2836.042 273.958 / 273.958 Output Total 800 / 1300 Balance 670 / 2020 -483.958 / 1536.042 273.958 / 273.958 Data NPU Micro: Micro: Microbiology 06/11/21 09:44 Gram Stain - Final Peritoneal Fluid Body Fluid Culture - Preliminary Gram Negative R ods 06/11/21 14:43 Blood Culture - Pr eliminary Blood NEGATIVE TO SAMMIE E 06/11/21 09:44 Blood Culture - Pr eliminary Blood NEGATIVE TO SAMMIE E Microbiology 06/11/21 09:44 Peritoneal Fluid Gram Stain - Final 06/11/21 09:44 Peritoneal Fluid Body Fluid Culture - Preliminary Gram Negative Rods 06/11/21 14:43 Blood Blood Culture - Preliminary NEGATIVE TO DATE 06/11/21 09:44 Blood Blood Culture - Preliminary NEGATIVE TO DATE A&P Additional A&P Information I discussed the case with Dr. White. I recommended that there be a hospice consultation if possible, or at least to consult the professor of oceanography. The patient will most benefit from making plans for how her last days and weeks will go, especially during the time when she has altered mental status during the predicted hepatic encephalopathy. She wants to be able to maintain dignity during this time. If she has good plans for who will care for her and who will help maintain her dignity, she is likely to be able to relax and use her robust strength during her dying process. Attestations NPU Medical Necessity Statement*: See medical provider note Coding Level of Care Code Acute Manager Dental for Holly Her
[2021-06-12] MEDS: mirtazapine 15 mg Tablet 7.5 MG PO (20:42)
[2021-06-13] VITALS (11 sets, daily range): BP systolic 98–124; BP diastolic 52–76; PULSE 82–94; RESP 16–18; TEMP 36.6–36.9; O2SAT 91–100
[2021-06-13] MEDS: HYDROmorphone 1 mg/mL INJ 1 mL IVP ×6 (01:01→22:53)
[2021-06-13] MEDS: piperacillin-tazobactam 3.375 GM in sodium chloride 0.9% (plus) 50 ML IV ×3 (04:08→19:51)
[2021-06-13] MEDS: vancomycin 1,000 MG in sodium chloride 0.9% 250 ML 250 MG IV ×2 (05:25→13:49)
[2021-06-13 05:29] LABS: Basophils % 0.4 %; Eosinophils # 0.1 10^3/uL (0.0-0.8); Eosinophils % 2.9 %; Hematocrit 26.6 % (37.0-47.0); Hemoglobin 8.1 g/dL (11.5-15.3); Lymphocytes # 0.3 10^3/uL (0.8-4.8); Lymphocytes % 6.5 %; Mean Corpuscular HGB Conc 30.5 g/dL (30.0-36.0); Mean Corpuscular Hemoglobin 26.9 pg (28.0-34.0); Mean Corpuscular Volume 88.4 fl (81-99); Mean Platelet Volume 10.5 fL (7.4-10.4); Monocytes # 0.7 10^3/uL (0.2-0.9); Monocytes % 14.2 %; Neutrophils % 75.4 %; Nucleated Red Blood Cells % 0 %; Platelet Count 112 10^3/cmm (130-400); Red Blood Count 3.01 10^6/uL (4.1-5.3); Red Cell Distribution Width 16.9 % (12.1-15.1); White Blood Count 4.8 10^3/uL (4.0-10.0)
[2021-06-13 05:53] LABS: Anion Gap 11.9 (5-19); Blood Urea Nitrogen 14 mg/dL (8-23); Calcium 7.5 mg/dL (8.5-10.5); Carbon Dioxide 21 mmol/L (22-29); Chloride 101 mmol/L (98-107); Glomerular Filtration Rate 72.7 mL/min (90-130); Glucose 116 mg/dL (65-115); Osmolality Calculated 271 mOsm/kg (285-295); Potassium 3.9 mmol/L (3.5-5.1); Sodium 130 mmol/L (136-145)
[2021-06-13] MEDS: nicotine 21 mg Patch 1 PATCH TRANSDERMA (08:57)
[2021-06-13] MEDS: potassium chloride ER 20 mEq Tablet PO (08:57)
[2021-06-13] MEDS: levothyroxine 175 mcg Tablet PO (08:57)
[2021-06-13] MEDS: duloxetine 60 mg Capsule PO (13:44)
[2021-06-13] MEDS: lactulose oral liq 20 gm/30 mL UDC PO (13:44)
[2021-06-13] MEDS: spironolactone 25 mg Tablet 100 MG PO (13:44)
[2021-06-13] MEDS: FUROsemide 40 mg Tablet PO (13:44)
[2021-06-13] MEDS: enoxaparin 40 mg/0.4 mL Syringe SUBCUT (13:49)
--- NOTE | 2021-06-13 13:50 | PM.PN ---
Subjective Subjective: Interval history: Patient was seen and examined this morning, her peritoneal cultures growing gram-negative coccobacilli final report is pending, she has been afebrile no leukocytosis endorsing slight burning sensation in her stomach with use of opioids she uses Remeron 45 mg and did not sleep well last night no signs of hepatic encephalopathy or GHULAM no bowel movement yet Dr. Low did see her yesterday and did not recommend one-to-one supervision or 96-hour hold she did not deem her unstable at this point and thinks her anxiety is related to her questions regarding end-stage liver disease, she does not have any active suicidal or homicidal thoughts or plans. Patient is stating that she made that statement yesterday out of frustration Vitals/I&O/Wt Last Vital Signs Temp 97.9 F 06/13/21 08:00 Pulse 82 06/13/21 08:00 Resp 16 06/13/21 08:57 BP 124/74 06/13/21 08:00 Pulse Ox 98 06/13/21 08:00 06/12/21 06/13/21 06/13/21 22:59 06:59 14:59 Intake Total 670 / 2520 316.042 / 2836.042 273.958 / 273.958 Output Total 800 / 1300 Balance 670 / 2020 -483.958 / 1536.042 273.958 / 273.958 Physical Exam Narrative: EXAM NARRATIVE: Pleasant female malnourished muscle mass loss laying supine without any active discomfort no worsening of hepatic encephalopathy distended abdomen mild tenderness to deep palpation awake alert into x3 GCS 15 bilateral breath sounds without adventitious rhonchi or crackles S1, S2 no murmur appreciated legs venous stasis dermatitis no active sign of cellulitis Data : 06/13/21 05:02 06/13/21 05:02 Micro: Microbiology 06/11/21 09:44 Gram Stain - Final Peritoneal Fluid Body Fluid Culture - Preliminary Gram Negative Rods 06/11/21 14:43 Blood Culture - Preliminary Blood NEGATIVE TO DATE 06/11/21 09:44 Blood Culture - Preliminary Blood NEGATIVE TO DATE A&P Assessment and plan (1) SBP (spontaneous bacterial peritonitis): Status: Acute (2) Ascites: Status: Acute Qualifiers: Ascites type: other type Qualified Code(s): R18.8 - Other ascites (3) Hepatic encephalopathy: Status: Acute (4) Fluid retention: Status: Acute (5) End stage liver disease: Status: Acute (6) Chronic pain: Status: Acute Additional A&P Information Secondary bacterial peritonitis likely related to peritoneal drain placement afebrile no leukocytosis continue vancomycin and cefepime plan to de-escalate antibiotics tomorrow if she stays clinically stable she will need long-term outpatient antibiotic therapy Suicidal/homicidal ideation: Patient is stating that she made 2 statements out of frustration but no active plans she was seen by Dr. Low who did not recommend any 6-hour hold since patient is taking 45 mg of Remeron if needed SSRI low-dose can be added I had a phone conversation with Dr. Low. Hepatic encephalopathy new acute worsening no bowel movement since admission, increase lactulose dose continue rifaximin DNR/DNI cardiac diet DVT prophylaxis Lovenox which I would hold due to decreasing hemoglobin Attestations Medical Necessity Statement*: Anticipating discharge after final results of blood cultures Time Spent in Patient Care: 16 - 35 minutes Coding Level of Care Code Acute Production Team Leader for [facility] Fwd Diagnoses SBP (spontaneous bacterial peritonitis) K65.2 Ascites R18.8 Ascites type: other type Hepatic encephalopathy K72.90 Fluid retention R60.9 End stage liver disease K72.90 Chronic pain G89.29
[2021-06-13] MEDS: lactulose oral liq 20 gm/30 mL UDC 30 GM PO (19:51)
[2021-06-13] MEDS: mirtazapine 30 mg Tablet PO (19:52)
[2021-06-14] VITALS (12 sets, daily range): BP systolic 98–144; BP diastolic 64–84; PULSE 74–92; RESP 16–20; TEMP 36.1–36.9; O2SAT 89–100
[2021-06-14] MEDS: HYDROmorphone 1 mg/mL INJ 1 mL IVP ×4 (02:27→23:53)
[2021-06-14] MEDS: piperacillin-tazobactam 3.375 GM in sodium chloride 0.9% (plus) 50 ML IV ×3 (03:18→22:25)
--- NOTE | 2021-06-14 03:56 | PC.NURSE ---
END OF SHIFT SUMMARY PT HAS SLEPT VERY LITTLE THIS SHIFT - MEDICATED X2 WITH IVP DILAUDID FOR PAIN 04/13 - PT HAS REMAINED PLEASANT AND TALKATIVE THROUGHOUT THE SHIFT - DOES ADMIT TO SOME DEPRESSION - HAS CARED FOR PERITONEAL DRAIN PER SELF - DID SPILL APPROX 500 CC - ASSISTED PT IN CLEANING UP AND CHANGING LINENS - VOICED LITTLE NEEDS THROUGHOUT THE NIGHT
[2021-06-14] MEDS: lactulose oral liq 20 gm/30 mL UDC 30 GM PO ×3 (08:29→22:24)
[2021-06-14] MEDS: nicotine 21 mg Patch 1 PATCH TRANSDERMA (08:29)
[2021-06-14] MEDS: potassium chloride ER 20 mEq Tablet PO (08:30)
[2021-06-14] MEDS: sertraline 50 mg Tablet 25 MG PO (08:30)
[2021-06-14] MEDS: levothyroxine 175 mcg Tablet PO (08:30)
[2021-06-14] MEDS: spironolactone 25 mg Tablet 100 MG PO (11:58)
[2021-06-14] MEDS: duloxetine 60 mg Capsule PO (11:58)
[2021-06-14] MEDS: FUROsemide 40 mg Tablet PO (11:58)
--- NOTE | 2021-06-14 14:14 | PM.PN ---
Subjective Subjective: Interval history: Patient has had only 1 bowel movement No fever no leukocytosis Peritoneal fluid culture positive for gram-negative rods and Enterococcus will add vancomycin, patient is stating that she would like to keep peritoneal drain and get herself treated with antibiotics She is not able to sleep at night properly after getting Remeron Vitals/I&O/Wt Last Vital Signs Temp 97.7 F 06/14/21 12:00 Pulse 83 06/14/21 12:00 Resp 20 H 06/14/21 12:00 BP 144/79 06/14/21 12:00 Pulse Ox 100 06/14/21 12:00 06/13/21 06/14/21 06/14/21 22:59 06:59 14:59 Intake Total 530 / 1533.958 170 / 1703.958 690 / 690 Output Total 2450 / 2450 1140 / 3590 Balance -1920 / -916.042 -970 / -1886.042 690 / 690 Physical Exam Narrative: EXAM NARRATIVE: She was sitting comfortably in her bed Still complaining of mild pain and abdominal discomfort especially at the time of antibiotics infusion EOMI, PERRLA No neurological deficit Asterixis negative Low extremity edema venous dermatitis no sign of cellulitis Abdomen distended positive ascites, will call hernia tenderness to deep palpation subcostal margins Bilateral breath sounds without adventitious rhonchi or crackles Data : 06/13/21 05:02 06/13/21 05:02 Micro: Microbiology 06/11/21 09:44 Gram Stain - Final Peritoneal Fluid Body Fluid Culture - Preliminary Gram Negative Rods Enterococcus species A&P Assessment and plan (1) SBP (spontaneous bacterial peritonitis): Status: Acute (2) Ascites: Status: Acute Qualifiers: Ascites type: other type Qualified Code(s): R18.8 - Other ascites (3) Hepatic encephalopathy: Status: Acute (4) Fluid retention: Status: Acute (5) End stage liver disease: Status: Acute (6) Chronic pain: Status: Acute Additional A&P Information Secondary bacterial peritonitis Gram-negative rods and Enterococcus species Will broaden coverage with vancomycin along Zosyn She has stayed afebrile no leukocytosis Received albumin at the time of admission Patient has been draining almost 3 L every day via peritoneal drain She does not want peritoneal drain to be removed because of her recurrent ascites and willing to try lifelong antibiotics, we did discuss complications of not getting peritoneal drain removed, she understands the complications, her questions were answered to her satisfaction Hepatic encephalopathy: Grade 1 with abnormal sleep cycle Continue Remeron Chronic anemia: Hemodynamically stable, will follow up with CBC tomorrow Suicidal ideation: Started on SSRI low-dose does not need 96-hour hold or one-to-one supervision DNR/DNI Cardiac diet Lovenox DVT prophylaxis: I would like to hold in case of worsening of symptoms since peritoneal fluid is positive for Enterococcus and gram-negative rods, if patient decides not to pursue any kind of removal of peritoneal drain then I would resume her prophylactic regimen Attestations Medical Necessity Statement*: Continue medical management Time Spent in Patient Care: 16 - 35 minutes Coding Level of Care Code Acute Under Presser for [facility] Fwd Diagnoses SBP (spontaneous bacterial peritonitis) K65.2 Ascites R18.8 Ascites type: other type Hepatic encephalopathy K72.90 Fluid retention R60.9 End stage liver disease K72.90 Chronic pain G89.29
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
[2021-06-14] MEDS: bacitracin ointment 28 gm 1 APPLIC TOPICAL ×2 (17:33→22:23)
--- NOTE | 2021-06-14 18:15 | PC.RESP ---
SMOKING CESSATION INFORMATION SENT TO PATIENT.
[2021-06-14] MEDS: vancomycin 1,000 MG in sodium chloride 0.9% 250 ML 250 MG IV (18:41)
[2021-06-14] MEDS: mirtazapine 30 mg Tablet PO (22:24)
[2021-06-14] MEDS: ondansetron 2 mg/ML SDV 2 mL 4 MG IVP (23:53)
[2021-06-15] VITALS (8 sets, daily range): BP systolic 93–112; BP diastolic 60–77; PULSE 92–114; RESP 17–22; TEMP 36.4–36.7; O2SAT 97–100
[2021-06-15] MEDS: vancomycin 1,000 MG in sodium chloride 0.9% 250 ML 250 MG IV (03:45)
[2021-06-15] MEDS: HYDROmorphone 1 mg/mL INJ 1 mL IVP ×2 (04:05→12:36)
--- NOTE | 2021-06-15 07:40 | PC.NURSE ---
c/o sob and cant breathe. see vital signs. O2 sats are good .
--- NOTE | 2021-06-15 08:17 | PC.NURSE ---
Panic Pt c/o unable to breathe , on at 97% on RA, She stated she felt like her throat was closing. I placed her on 1lnc and turned fan on, and turned down heat in room. Pt is feeling slightly better since I did that. VAPE and 2 lighters found in bed. Put them in pyxis and explained to pt that she is not allowed to have either one due to health and ox Pt oxygen in room.
[2021-06-15] MEDS: piperacillin-tazobactam 3.375 GM in sodium chloride 0.9% (plus) 50 ML IV (08:43)
[2021-06-15] MEDS: bacitracin ointment 28 gm 1 APPLIC TOPICAL (08:45)
[2021-06-15] MEDS: sertraline 50 mg Tablet 25 MG PO (08:46)
[2021-06-15] MEDS: levothyroxine 175 mcg Tablet PO (08:46)
[2021-06-15] MEDS: potassium chloride ER 20 mEq Tablet PO (08:46)
[2021-06-15 11:33] LABS: Basophils % 0.4 %; Eosinophils # 0.1 10^3/uL (0.0-0.8); Eosinophils % 0.9 %; Hematocrit 23.4 % (37.0-47.0); Hemoglobin 7.1 g/dL (11.5-15.3); Lymphocytes # 0.3 10^3/uL (0.8-4.8); Lymphocytes % 3.4 %; Mean Corpuscular HGB Conc 30.3 g/dL (30.0-36.0); Mean Corpuscular Hemoglobin 27.3 pg (28.0-34.0); Mean Platelet Volume 10.5 fL (7.4-10.4); Monocytes # 1.1 10^3/uL (0.2-0.9); Monocytes % 11.9 %; Neutrophils # 7.69 10^3/uL (1.8-7.7); Neutrophils % 82.4 %; Nucleated Red Blood Cells % 0 %; Platelet Count 207 10^3/cmm (130-400); Red Cell Distribution Width 17.2 % (12.1-15.1); White Blood Count 9.3 10^3/uL (4.0-10.0)
[2021-06-15 12:07] LABS: Alanine Aminotransferase 26 U/L (0-33); Albumin Level 2.2 g/dL (3.5-5.2); Alkaline Phosphatase 136 IU/L (35-105); Aspartate Amino Transferase 40 U/L (0-32); Blood Urea Nitrogen 14 mg/dL (8-23); Calcium 7.1 mg/dL (8.5-10.5); Carbon Dioxide 21 mmol/L (22-29); Chloride 101 mmol/L (98-107); Globulin 2.1 g/dL (1.3-4.6); Glucose 134 mg/dL (65-115); Osmolality Calculated 270 mOsm/kg (285-295); Sodium 129 mmol/L (136-145); Total Bilirubin 0.7 mg/dL (0.15-1.2); Total Protein 4.3 g/dL (6.6-8.7)
--- NOTE | 2021-06-15 14:08 | PC.NURSE ---
this nurse went to assist TONNY Cleveland with patient. Pt was very uncomfortable and restless. She did not have IV access at this time and we were trying to obtain one. Patient was groaning and grimacing. Pt requested please help me, it hurts This nurse contacted Dr. White who stated he would put orders in for po pain medication. This nurse talked with TONNY Cleveland who was pt care nurse and new order for morphine was administered to pt SL
[2021-06-15] MEDS: morphine 10 mg/0.5 mL oral liq UD SUBLINGUAL (14:16)
--- NOTE | 2021-06-15 15:50 | PC.NURSE ---
THIS NURSE WENT IN AROUND [phone] TO ANSWER PT'S CALL LIGHT. PT WAS GRIMACING IN PAIN AND ASKED THAT I EMPTY HER DRAIN. PT APPEARED TO BE IN SEVERE PAIN. PT COULDN'T EVEN LAY IN THE BED COMFORTABLY. SHE WAS ROLLING AROUND IN BED AND IT APPEARED THAT SHE WAS VERY UNCOMFORTABLE. THIS NURSE WENT AND NOTIFIED THE CHARGE NURSE OF THE PAIN THIS PT WAS IN. CHARGE NURSE CALLED PHYSICIAN AND GAVE PRESCRIBED MEDICATION.
--- NOTE | 2021-06-15 15:56 | PC.NURSE ---
called to room by kathy bob found with no respirations and no pulse, 2nd nurse verified by Deana Barrientos RN
--- NOTE | 2021-06-15 16:18 | PC.NURSE ---
MTS contacted and pt was not a candidate for donation. Waiting to hear from saving site and family.
--- NOTE | 2021-06-15 16:56 | PC.NURSE ---
contact for patients sister Kim Johnson- [phone].
--- NOTE | 2021-06-15 17:26 | P.DES_ITS ---
Discharge Providers DDS Date of Admission: 06/11/21 19:30 Date Summary Completed: 06/15/21 Attending Provider at Admission: Evans White MD Attending Provider at Discharge: Evans White MD Primary Care Provider: Paulo Taylor MD DS Diagnoses Hospital Diagnoses (1) SBP (spontaneous bacterial peritonitis): (2) Ascites: Qualifiers: Ascites type: other type Qualified Code(s): R18.8 - Other ascites (3) Hepatic encephalopathy: (4) Fluid retention: (5) End stage liver disease: (6) Chronic pain: Reason for Visit Reason for Visit: SEVERE ABDOMINAL PAIN Summary Summary Summary: History of Present Illness Rae Salmeron is a 61 year old female with history of end-stage liver disease, recently had peritoneal drain placed by Dr. Sloan currently living with her roommate not in touch with the family presented today with chief complaint of nausea, abdominal pain and rigors. Patient is stating that her symptoms started 1-1/2 weeks after placement of peritoneal drain, since then she has been draining 1 to 1.5 L a day, her symptoms gradually got worse which she is describing as nausea, abdominal pain, despite adequate drainage abdominal bloating has not improved and today her abdominal pain has gotten worse thus came to the hospital. She has not taken temperature however endorsing subjective fevers. No active emesis or diarrhea. In the ER she was diagnosed with SBP and given vancomycin and cefepime. Blood pressure stable no leukocytosis. Patient was emotionally labile at the time of my presentation and told me that I should not contact her family other than emergencies she gave me phone number of her Sister Kim [phone] She lives with her roommate, Natalie, she gave me permission to exchange information with her phone number [phone] Hospital course Patient was admitted for management of bacterial peritonitis, she was started on broad-spectrum antibiotics, her ascitic fluid was showing gram-negative rods, she remained afebrile no leukocytosis, she did show signs of hepatic encephalopathy she remained constipated, in the hospital she was found to smoke her electronic cigarettes as well, she had marijuana, cigarette and electronic VAp device which was confiscated. Patient's abdominal pain did not improve despite using opioids. On 06/15 patient was experiencing excruciating pain, she has positive asterixis, her nurse Megha was in the room who noticed hematemesis twice, hemoglobin 7.1. I did discuss goals of care with the patient in front of the nurse and the TECHNICAL INSTRUCTOR COURSE DEVELOPER. Patient stated that she does not want any aggressive intervention and she knows that she is dying and agreed with initiation of comfort measures. Patient at 1536 today, Kim her sister notified Additional Data Confirmation of as documented by pronouncing clinician: no pulse Family: contacted Additional persons at bedside: nursing staff Attending/PCP notified?: I am attending Was code activated?: No Autopsy requested?: No Advance directives?: No Hospice patient?: Yes Discharge Plan Discharge Patient Disposition: Prescriptions: No Action oxycodone 10 mg tablet 10 mg PO BID PRN (Reason: pain) 14 Days Qty: 20 RF: 0 ondansetron HCl [Zofran] 4 mg tablet 4 mg PO Q6H PRN (Reason: nausea and vomiting) Qty: 20 RF: 0 furosemide 40 mg Tablet 40 mg PO DAILY@1200 RF: 0 levothyroxine 175 mcg Tablet 175 mcg PO DAILY@0900 RF: 0 spironolactone 100 mg tablet 100 mg PO DAILY@1200 RF: 0 mirtazapine 45 mg tablet 45 mg PO DAILY@0000 RF: 0 sertraline [Zoloft] 50 mg tablet 50 mg PO DAILY@1200 RF: 0 duloxetine 60 mg capsule,delayed release(DR/EC) 60 mg PO DAILY@1200 RF: 0 Xifaxan 550 mg tablet 550 mg PO BID@1200,0000 RF: 0 lactulose 20 gram/30 mL solution 20 g PO BID@1200,0000 RF: 0 DS Attestations Time Spent in /Discharge Care*: less than 30 min Quality - AMI: AMI present?: No Quality - Stroke: CVA present?: No Quality - VTE: VTE present?: No Coding Level of Care Code Acute Professor Of Mechanical Engineering for g Fwd Diagnoses SBP (spontaneous bacterial peritonitis) K65.2 Ascites R18.8 Ascites type: other type Hepatic encephalopathy K72.90 Fluid retention R60.9 End stage liver disease K72.90 Chronic pain G89.29
--- NOTE | 2021-06-15 18:02 | PC.NURSE ---
This nurse called security to ask how to dispose of marijuana that patient had left in room. Dhaval had instructed to put it in the sharps. this nurse and Megha Wilson RN wasted it into the sharps container in [facility] along with a package that said cannabis flower and a pipe filled with what also looked like marijuana.
--- NOTE | 2021-06-15 18:32 | PC.NURSE ---
pain Pt screaming in pain. pt was given dilaudid around noon which didnt seem to be working. Pt spit up blood twice with some clots of blood. she talked with and stated she wanted on comfort care. Pt asked for clergy who came to visit her. Morphine was ordered and given to her for her severe abd pain. Pt rested after it was given and clergy stayed at her side for almost a hour. Charge nurse and I tried to call her friend zach (pt wanted us to have her visit pt).
== END 2021-06-15 17:30 | disposition expired | DRG 372 ==
LOC: ER 16:36 → MEDSURG 06-12 20:34 → CSU 06-14 06:01
PROVIDERS: Admitting Provider Internal Medicine; Emergency Provider Emergency Medicine; PCP Internal Medicine; Visit Provider Internal Medicine
DX: K65.2 Spontaneous bacterial peritonitis (principal); R18.8 Other ascites; R45.851 Suicidal ideations; K72.90 Hepatic failure, unspecified without coma; G89.29 Other chronic pain; E03.9 Hypothyroidism, unspecified; Z51.5 Encounter for palliative care; Z66 Do not resuscitate; R45.850 Homicidal ideations; F17.200 Nicotine dependence, unspecified, uncomplicated; B95.2 Enterococcus as the cause of diseases classified elsewhere; Z20.822 Contact with and (suspected) exposure to COVID-19; Z79.890 Hormone replacement therapy; Z86.19 Personal history of other infectious and parasitic diseases; Z90.49 Acquired absence of other specified parts of digestive tract; Z90.710 Acquired absence of both cervix and uterus; Z96.659 Presence of unspecified artificial knee joint
CPT/HCPCS: 36415; 71045; 74177; 80048; 80053; 80202; 80500; 81003; 82042; 82945; 83605; 83615; 83690; 83735; 83986; 84145; 84157; 85025; 85651; 86140; 87040; 87070; 87075; 87077; 87186; 87205; 87426; 89050; 96365; 96366; 96367; 96372; 99285; J0692; J1170; J1650; J2270; J2405; J2543; J3370; J7050; P9041; Q9967